=== PATIENT | male | born 1970 | race Caucasian/White ===

== ENCOUNTER 2021-11-30 21:37 | Observation (INO) | payer BC ==
--- OUTSIDE RECORDS SUMMARY | 2021-11-30 21:42 | XMS REPORT | Continuity of Care Document ---
:1970 Author Organization [facility] t Address [address] [place] [address] Care Team Providers Name Role Phone Adelia Fragoso Attending Clinician ADELIA FRAGOSO Attending Clinician Unavailable Isabelle Attending Clinician Unavailable Jaylen Attending Clinician Unavailable El Parsons Admitting Clinician EL PARSONS Admitting Clinician Unavailable Anu_Tho Admitting Clinician Unavailable Jaylen Admitting Clinician Unavailable Payers Payer Name Policy Type Policy Number Effective Date Expiration Date [place] [id number] 2016 00:00:00 Problems Condition Condition Condition Status Onset Resolution Last Treating Co mments Source Name Details Category Date Date Treatment Clinician Date THORACIC, THORACIC, Diagnosis Active 2020-09-24 Memoria LUMBAR LUMBAR 08-09 13:12:00 l COMPRESSIO COMPRESSIO 21:05: Fan blas N N 00 FRACTURES FRACTURES Active 08/09/2020 [facility] Bacterial Bacterial Problem Active 2020-08-12 Memoria pneumonia pneumonia 21:07:01 l (disorder) (disorder) Fan blas Active Problem 08/12/2020 [facility] Diabetes Diabetes Problem Active 2020-08-12 Memoria mellitus mellitus 21:07:01 l (disorder) (disorder) He wan Active Problem 08/12/2020 [facility] History of Past Illness Condition Condition Condition Status Onset Resolution Last Treating Co mments Source Name Details Category Date Date Treatment Clinician Date Contusion Contusion Problem 2020-08-12 2020-08-12 Memoria of lower of lower 08-10 21:07:01 21:07:01 l back and back and 17:00: Ger khanna pelvis, pelvis, 00 initial initial encounter encounter 08/10/2020 [facility] Allergies, Adverse Reactions, Alerts This patient has no known allergies or adverse reactions. Social History Smoking Status Start Date Stop Date Source Former Smoker Kayleigh [facility] Social History [facility] Medications Ordered Filled Start Stop Current Ordering Indication Dosage Frequency Signature Comments Components Source Medication Medication Date Date Medication? Clinician (SIG) Name Name Morphine No 4 mg, Memoria 08-10 Route: l 06:37: IVP, ONCE, Dosing Weight 127, kg, Priority: STAT, Start date: 08/10/20 1:37:00 CDT, Stop date: 08/10/20 1:37:00 CDT Saline No Notes: Memoria Flush 0.9% 08-10 Same as: l 04:00: BD Posiflush Sterile Dilaudid No 1 mg, Memoria 08-10 Route: l 03:59: IVP, ONCE, Dosing Weight 127, kg, Priority: STAT, Start date: 08/09/20 22:59:00 CDT, Stop date: 08/09/20 22:59:00 CDT alprazolam alprazolam No alprazolam [place] 1 mg tablet 1 mg tablet 1 mg d a TAKE 1 TAKE 1 tablet [facility] TABLET BY TABLET BY TAKE 1 al MOUTH THREE MOUTH THREE TABLET BY Health TIMES DAILY TIMES DAILY MOUTH Outreac THREE h TIMES Program DAILY amlodipine amlodipine No amlodipine [place] 10 10 10 da mg-valsarta mg-valsarta mg-valsart [facility] n 160 n 160 an 160 al mg-hydrochl mg-hydrochl mg-hydroch Health orothiazide orothiazide lorothiazi Outreac 25 mg 25 mg de 25 mg h tablet tablet tablet Program Euthyrox 50 Euthyrox 50 No Euthyrox [place] mcg tablet mcg tablet 50 mcg d a tablet [facility] glyburide glyburide No glyburide [place] 2.5 mg 2.5 mg 2.5 mg da tablet tablet tablet [facility] metformin metformin No metformin [place] 500 mg 500 mg 500 mg da tablet TK 1 tablet TK 1 tablet TK [facility] T PO BID T PO BID 1 T PO BID a l UTD UTD [facility] Outreac h Program methyldopa methyldopa No methyldopa [place] 500 mg 500 mg 500 mg da tablet TAKE tablet TAKE tablet [facility] 1 TABLET BY 1 TABLET BY TAKE 1 al MOUTH TWICE MOUTH TWICE TABLET BY Health A DAY A DAY MOUTH Outreac TWICE A h DAY Program rosuvastati rosuvastati No rosuvastat [place] n 10 mg n 10 mg in 10 mg da tablet TK 1 tablet TK 1 tablet TK [facility] T PO HS. T PO HS. 1 T PO HS. a l Health Outreac h Program Immunizations Ordered Immunization Filled Immunization Date Status Commen ts Source Name Name COVID-19, mRNA, COVID-19, mRNA, 2020-07-11 Completed Jomar alen LNP-S, PF, 100 LNP-S, PF, 100 13:00:49 [facility] mcg/0.5 mL dose mcg/0.5 mL dose Outr each Program COVID-19, mRNA, COVID-19, mRNA, 2020-06-13 Completed Hadley alen LNP-S, PF, 100 LNP-S, PF, 100 13:14:20 [facility] mcg/0.5 mL dose mcg/0.5 mL dose Outr each Program influenza virus 2011-12-07 Completed Kayla Marcano vaccine, inactivated 16:35:00 pneumococcal 2011-12-07 Completed [facility] clay 23-valent vaccine 16:33:00 Vital Signs Vital Name Observation Time Observation Value Comments Source Temperature Oral (F) 2020-08-10 10:43:00 98.2 F [facility] Heart Rate 2020-08-10 10:43:00 [facility] Respitory Rate 2020-08-10 10:43:00 Sindy Marcos Systolic (mm Hg) 2020-08-10 10:43:00 Jamin Marcano Diastolic (mm Hg) 2020-08-10 10:43:00 Mem orial [place] Height 2020-08-10 03:13:00 185.42 cm [facility] [place] BMI Calculated 2020-08-10 03:13:00 Sindy canas [place] Weight 2020-08-10 03:13:00 [facility] Systolic (mm Hg) 2020-08-10 03:13:00 Jamin Marcano Diastolic (mm Hg) 2020-08-10 03:13:00 Mem orial [place] Heart Rate 2020-08-10 03:13:00 [facility] Respitory Rate 2020-08-10 03:13:00 Memori al [place] Temperature Oral (F) 2020-08-10 03:13:00 97.2 F [facility] Procedures This patient has no known procedures. Encounters Start End Encounter Admission Attending Care Care Encounter Source Date/Time Date/Time Type Type Clinicians Facility Department ID 2020-08-10 2020-08-10 [facility] [id number] Memoria 03:09:00 10:44:00 r [facility] 53 l [facility] 2020-08-09 2020-08-10 Outpatient Fouzia [facility] [id number] 22:09:00 05:44:00 Adelia [place] 2020-08-09 2020-08-10 Emergency E FOUZIA [facility] [address] [facility] 21:03:00 05:44:00 ADELIA 2020-07-11 2020-07-11 Outpatient Colletteanderson [facility] [address] [place] 01:06:00 01:06:00 [facility] 2020-07-11 2020-07-11 [facility] [place] - [id number] M [place] 00:00:00 00:00:00 Kayleigh Julian MD: [address] [facility] [place], [place] Outre [address] h , Ph. Program 2020-06-13 2020-06-13 [facility] [place] 01:20:00 01:20:00 [facility]406 [facility] 2020-06-13 2020-06-13 [facility] [place] - [id number] [place] 00:00:00 00:00:00 Kayleigh Julian MD: [address] [facility] [place] [place] Outre [address] h , Ph. Program 2020-04-05 2020-04-05 Outpatient Anu_Jasper [facility] [address] [place] 04:46:00 04:46:00 0127 [facility] 2020-01-26 2020-01-26 Outpatient Brown_R [facility] [id number] [place] 02:19:00 02:19:00 [id number] [facility] Results Test Description Test Time Test Comments Results Result Comments Source BLOOD BANK RESULTS 2020-08-10 06:24:00 Test Item Value Reference Range Interpretation Comme nts ABO/Rh (test code = ABO/Rh) O NEG [facility] [employer] BANK [id number] 06:24:00 Test Item Value Reference Range Interpretation Comments Antibody Scrn (test Negative (08/10/20 1:24 code = Antibody Scrn) AM) [facility] [employer] [id number] 05:10:00 Test Item Value Reference Range Interpretation Comments Glucose Lvl (test code = Glucose Lvl) 114 70-99 [facility] [employer] [id number] 05:10:00 Test Item Value Reference Range Interpretation Comments BUN (test code = BUN) 23 7-22 [facility] [employer] [id number] 05:10:00 Test Item Value Reference Range Interpretation Comments Creatinine Lvl (test code = Creatinine 0.86 0.50-1.40 Lvl) [facility] [employer] [id number] 05:10:00 Test Item Value Reference Range Interpretation Comments Sodium Lvl (test code = Sodium Lvl) 141 135-145 [facility] [employer] [id number] 05:10:00 Test Item Value Reference Range Interpretation Comments Potassium Lvl (test code = Potassium 3.7 3.5-5.1 Lvl) [facility] [employer] [id number] 05:10:00 Test Item Value Reference Range Interpretation Comments Chloride Lvl (test code = Chloride Lvl) 108 95-109 [place] [id number] 05:10:00 Test Item Value Reference Range Interpretation Comments CO2 (test code = CO2) 27 24-32 [place] [id number] 05:10:00 Test Item Value Reference Range Interpretation Comments Calcium Lvl (test code = Calcium Lvl) 8.4 8.5-10.5 [place] [id number] 05:10:00 Test Item Value Reference Range Interpretation Comments AGAP (test code = AGAP) 9.7 10.0-20.0 [place] [id number] 05:10:00 Test Item Value Reference Range Interpretation Comments eGFR (test code = eGFR) 100 [place] [id number] 05:10:00 Test Item Value Reference Range Interpretation Comments Segs (test code = Segs) 55.4 45.0-75.0 [place] 332141-06-03 05:10:00 Test Item Value Reference Range Interpretation Comments Lymphocytes (test code = Lymphocytes) 33.9 20.0-40.0 [place] 332141-06-03 05:10:00 Test Item Value Reference Range Interpretation Comments Monocytes (test code = Monocytes) 8.4 2.0-12.0 [place] 332141-06-03 05:10:00 Test Item Value Reference Range Interpretation Comments Eosinophils (test code = 1.7 See_Comment [A utomated message] The Eosinophils) system which ge nerated this result tra nsmitted reference range : <=4.0. The reference r thiago was not used to int erpret this result as normal/abnormal . [place] 332141-06-03 05:10:00 Test Item Value Reference Range Interpretation Comments Basophils (test code = 0.6 See_Comment [Aut omated message] The Basophils) system which ge nerated this result tra nsmitted reference range : <=1.0. The reference r thiago was not used to int erpret this result as normal/abnormal . [place] 332141-06-03 05:10:00 Test Item Value Reference Range Interpretation Comments Neutrophils # (test code = Neutrophils 4.0 1.5-8.1 #) [place] 332141-06-03 05:10:00 Test Item Value Reference Range Interpretation Comments Lymphocytes # (test code = Lymphocytes 2.4 1.0-5.5 #) [id number] 05:10:00 Test Item Value Reference Range Interpretation Comments Monocytes # (test code 0.6 See_Comment [Aut omated message] The = Monocytes #) system which generated this result tra nsmitted reference range : <=0.8. The reference r thiago was not used to int erpret this result as normal/abnormal . [place] 332141-06-03 05:10:00 Test Item Value Reference Range Interpretation Comments Eosinophils # (test code 0.1 See_Comment [A utomated message] The = Eosinophils #) system whic h generated this result tra nsmitted reference range : <=0.5. The reference r thiago was not used to int erpret this result as normal/abnormal . [place] 332141-06-03 05:10:00 Test Item Value Reference Range Interpretation Comments WBC X 10x3 (test code = WBC X 10x3) 7.2 3.7-10.4 [place] 332141-06-03 05:10:00 Test Item Value Reference Range Interpretation Comments RBC X 10x6 (test code = RBC X 10x6) 4.36 4.70-6.10 [place] 332141-06-03 05:10:00 Test Item Value Reference Range Interpretation Comments Hgb (test code = Hgb) 13.1 14.0-18.0 [place] 332141-06-03 05:10:00 Test Item Value Reference Range Interpretation Comments Hct (test code = Hct) 37.7 42.0-54.0 [place] 332141-06-03 05:10:00 Test Item Value Reference Range Interpretation Comments MCV (test code = MCV) 86.5 80.0-94.0 [place] 332141-06-03 05:10:00 Test Item Value Reference Range Interpretation Comments MCH (test code = MCH) 30.1 pg 27.0-31.0 [place] 332141-06-03 05:10:00 Test Item Value Reference Range Interpretation Comments MCHC (test code = MCHC) 34.8 32.0-36.0 [place] 332141-06-03 05:10:00 Test Item Value Reference Range Interpretation Comments RDW (test code = RDW) 14.7 11.5-14.5 [place] 332141-06-03 05:10:00 Test Item Value Reference Range Interpretation Comments Platelet (test code = Platelet) 106 133-450 [place] 332141-06-03 05:10:00 Test Item Value Reference Range Interpretation Comments MPV (test code = MPV) 7.1 7.4-10.4 [place] 332141-06-03 05:10:00 Test Item Value Reference Range Interpretation Comments ACT (TEG) Rapid (test code = ACT (TEG) 121 s 86-118 Rapid) [place] 332141-06-03 05:10:00 Test Item Value Reference Range Interpretation Comments Split Point Rapid (test code = Split 0.7 min Point Rapid) [place] 332141-06-03 05:10:00 Test Item Value Reference Range Interpretation Comments R-time Rapid (test code = R-time 0.8 min 0.4-0.7 Rapid) [place] 332141-06-03 05:10:00 Test Item Value Reference Range Interpretation Comments K-time Rapid (test code = K-time 1.5 min 0.6-2.3 Rapid) [place] 332141-06-03 05:10:00 Test Item Value Reference Range Interpretation Comments Angle Rapid (test code = Angle 74 degrees 64-80 Rapid) [place] 332141-06-03 05:10:00 Test Item Value Reference Range Interpretation Comments Max Amplitude Rapid (test code = Max 63 mm 52-71 Amplitude Rapid) [place] 332141-06-03 05:10:00 Test Item Value Reference Range Interpretation Comments G-value Rapid (test code = G-value 8.5 5.0-11.6 Rapid) [place] 332141-06-03 05:10:00 Test Item Value Reference Range Interpretation Comments Estimated % Lysis Rapid 0.0 See_Comment [Au tomated message] The (test code = Estimated syste m which generated % Lysis Rapid) this result t ransmitted reference range : <=7.5. The reference r thiago was not used to int erpret this result as normal/abnormal . [id number] 05:10:00 Test Item Value Reference Range Interpretation Comments Hep C Ab (test code = Hep C Ab) NON-REACTIVE [facility] [id number] 05:10:00 Test Item Value Reference Range Interpretation Comments Hep Signal to Cut-Off (test code = Hep 0.01 1 Signal to Cut-Off) [facility] [id number] 05:10:00 Test Item Value Reference Range Interpretation Comments [facility] HIV 4th GEN (test Negative *NA*(08/10/20 code = CDC HIV 4th 12:10 AM) GEN) [facility]
--- NOTE | 2021-11-30 22:01 | RAD REPORT ---
EXAM DESCRIPTION: CT - Ct Stroke Brain Wo Cont - 11/30/2021 9:56 pm CLINICAL HISTORY: Neuro deficit, acute, stroke suspected CVA symptomology COMPARISON: Head Brain Wo Cont dated 12/16/2016 TECHNIQUE: All CT scans are performed using dose optimization technique as appropriate and may inclu de automated exposure control or mA/KV adjustment according to patient size. FINDINGS: No intracranial hemorrhage, hydrocephalus or extra-axial fluid collection.No areas of brai n edema or evidence of midline shift. Mild vertebral atherosclerosis. The paranasal sinuses and mastoids are clear. The calvarium is intact. IMPRESSION: No acute intracranial abnormality. If there is continued clinical concern for CVA, MR imaging of the brain would be recommended.
[2021-11-30 22:19] LABS: Absolute Lymphocytes (CBC) 2.2 K/uL (0.7-4.9); Hematocrit 38.2 % (39.6-49.0); Lymphocytes % 31.6 % (15.3-44.8); RBC Red Blood Cell Count 4.56 M/uL (4.33-5.43)
[2021-11-30 22:28] LABS: Protime INR 1.02
[2021-11-30 22:31] LABS: Potassium 3.5 mmol/L (3.5-5.1)
--- NOTE | 2021-11-30 23:15 | RAD REPORT ---
EXAM DESCRIPTION: RAD - Chest Single View - 11/30/2021 11:05 pm CLINICAL HISTORY: CVA Chest pain. COMPARISON: Chest Single View dated 12/16/2016; CHEST PA AND LAT 2 VIEW dated 07/15/2011; CHEST SINGLE VIEW dated 07/14/2011; CHEST SINGLE VIEW dated 07/30/2008 FINDINGS: Portable technique limits examination quality. The lungs are grossly clear. The heart is normal in size. No displaced fractures. IMPRESSION: No acute intrathoracic process suspected.
--- NOTE | 2021-11-30 23:38 | ER ---
Nurse's Notes [facility] Name: Jitendra Holliday Age: 51 yrs Sex: Male : 1970 Arrival Date: 11/30/2021 Time: 21:44 Bed 25 Private MD: Diagnosis: Transient cerebral ischemic attack, unspecified;Left Arm Paresthesias;Essential (primary) hypertension Presentation: 11/30 21:45 Chief complaint: Patient states: Unable to "get out what I want to say", dizzy, "in a ld1 fog", left arm tingling on and off/numb. "on and off for 2 weeks.". Coronavirus screen: At this time, the client does not indicate any symptoms associated with coronavirus-19. Ebola Screen: No symptoms or risks identified at this time. Initial Sepsis Screen: Does the patient meet any 2 criteria? No. Patient's initial sepsis screen is negative. Does the patient have a suspected source of infection? No. Patient's initial sepsis screen is negative. Risk Assessment: Do you want to hurt yourself or someone else? Patient reports no desire to harm self or others. Onset of symptoms was November 30, 2021 at 21:47. 21:45 Method Of Arrival: Wheelchair ld1 21:45 Acuity: JOHANNA 3 ld1 Triage Assessment: 21:47 General: Appears in no apparent distress. comfortable, Behavior is calm, cooperative, ld1 appropriate for age. Pain: Denies pain. EENT: No signs and/or symptoms were reported regarding the EENT system. Neuro: Myles Agitation-Sedation Scale (RASS):. Neuro: Level of Consciousness is awake, alert, obeys commands, Oriented to person, place, time, situation, Associate Veterinarian are equal bilaterally Gait is unsteady. Cardiovascular: Capillary refill < 3 seconds Patient's skin is warm and dry. Respiratory: Airway is patent Respiratory effort is even, unlabored. GI: Abdomen is round non-distended. : No signs and/or symptoms were reported regarding the genitourinary system. Derm: No signs and/or symptoms reported regarding the dermatologic system. Musculoskeletal: No signs and/or symptoms reported regarding the musculoskeletal system. Historical: - Allergies: 21:47 No Known Allergies; ld1 - PMHx: 21:47 Diabetes - NIDDM; Hypertension; Hypothyroidism; insomnia; microalbuminuria; TIA; ld1 - PSHx: 21:47 None; ld1 - Immunization history:: Adult Immunizations up to date, Client reports receiving the 2nd dose of the Covid vaccine. - Social history:: Smoking status: Patient denies any tobacco usage or history of. Patient/guardian denies using alcohol. Screenin:33 Abuse screen: Denies threats or abuse. Denies injuries from another. Nutritional ll3 screening: No deficits noted. Tuberculosis screening: No symptoms or risk factors identified. VAN Screening: Arm Drift: Patient shows no arm weakness. Visual Disturbance: No visual disturbance noted. Aphasia: No aphasia noted. Neglect: No neglect noted. Patient has been NPO before screening. The patient is alert, able to follow commands. The patient does not exhibit slurred or garbled speech The patient is not exhibiting difficulty speaking. The patient does not exhibit difficulty understanding words. The patient is able to swallow own secretions with no drooling or need for suction. Patient tolerated one teaspoon of water. No drooling, immediate coughing, gurgling, or clearing of the throat was noted. The patient tolerated 90mL of water. No drooling, immediate coughing, gurgling, or clearing of the throat was noted. The patient passed the bedside swallow screening. Oral medications may be given as ordered. Contact Physician for further diet orders. Provider notified of bedside swallow screening results: Sander Arciniega DO. Fall Risk No fall in past 12 months (0 pts). No secondary diagnosis (0 pts). IV access (20 points). Ambulatory Aid- None/Bed Rest/Nurse Assist (0 pts). Gait- Normal/Bed Rest/Wheelchair (0 pts) Mental Status- Oriented to own ability (0 pts). Total Jim Fall Scale indicates No Risk (0-24 pts). Assessment: 22:31 General: Appears uncomfortable, Behavior is calm, cooperative, anxious. Pain: Denies ll3 pain. Neuro: Level of Consciousness is awake, alert, obeys commands, Oriented to person, place, time, situation, Reports dizziness, since Noon yesterday Numbness to left arm, states symptoms have been off and on for the last two weeks, states the s/s came back at noon yesterday. Respiratory: Respiratory effort is even, unlabored, Respiratory pattern is regular, symmetrical. Derm: Skin is pink, warm \\T\\ dry. Musculoskeletal: Circulation, motion, and sensation intact. 23:10 Reassessment: Patient appears in no apparent distress at this time. No changes from kl previously documented assessment. Patient and/or family updated on plan of care and expected duration. Pain level reassessed. Patient is alert, oriented x 3, equal unlabored respirations, skin warm/dry/pink. 12/01 00:05 Reassessment: Patient appears in no apparent distress at this time. No changes from ll3 previously documented assessment. Patient and/or family updated on plan of care and expected duration. Pain level reassessed. Patient is alert, oriented x 3, equal unlabored respirations, skin warm/dry/pink. Vital Signs: 11/30 21:45 BP 203 / 89; Pulse 73; Resp 18; Temp 97.3(TE); Pulse Ox 98% on R/A; Weight 109.32 kg; ld1 Height 6 ft. 1 in. (185.42 cm); Pain 0/10; 22:36 BP 169 / 78; Pulse 64; Resp 21; Pulse Ox 98% on R/A; ll3 23:14 BP 173 / 81; Pulse 63; Resp 18; Pulse Ox 99% on R/A; kl 12/01 00:05 BP 170 / 78; Pulse 59; Resp 20; Pulse Ox 98% on R/A; ll3 11/30 21:45 Body Mass Index 31.80 (109.32 kg, 185.42 cm) ld1 NIH Stroke Scale Scores: 11/30 22:33 NIHSS Score: 0 ll3 22:50 NIHSS Score: 0 ms3 ED Course: 21:44 Patient arrived in ED. ja2 21:47 Sander Arciniega DO is Attending Physician. ms3 21:47 Triage completed. ld1 21:47 Arm band placed on right wrist. ld1 21:57 CT Stroke Brain w/o Contrast In Process Unspecified. EDMS 22:05 Initial lab(s) drawn, by me, sent to lab. Inserted saline lock: 22 gauge in left ll3 antecubital area, using aseptic technique. Blood collected. 22:33 Patient has correct armband on for positive identification. Bed in low position. Call 3 light in reach. Side rails up X 1. Client placed on continuous cardiac and pulse oximetry monitoring. NIBP monitoring applied. 23:07 Stroke CXR 1 View In Process Unspecified. EDMS 23:36 Bambi Yoon MD is Hospitalizing Provider. ms3 12/01 00:59 No provider procedures requiring assistance completed. Patient admitted, IV remains in kl place. Administered Medications: No medications were administered Outcome: 11/30 23:38 Decision to Hospitalize by Provider. ms3 12/01 00:59 Admitted to ER Hold. Please see [facility] for further documentation. kl 18:49 Patient left the ED. aa5 NIH Stroke Scale - NIH Stroke Score Date: 11/30/2021 Time: 22:33 Total Score = 0 1a. Level of Consciousness (LOC) - 0(Alert) 1b. Level of Consciousness (LOC) (Month \\T\\ Age) - 0(Both) 1c. LOC Commands (Open \\T\\ Closes Eyes/Summer School Coordinator) - 0(Both) 2. Best Gaze (Lateral Gaze Paresis) - 0(Normal) 3. Visual Field Loss - 0(No visual loss) 4. Facial Palsy - 0(Normal) 5a. Left Arm: Motor (10-second hold) - 0(No drift) 5b. Right Arm: Motor (10-second hold) - 0(No drift) 6a. Left Leg: Motor (5-second hold - always test supine) - 0(No drift) 6b. Right Leg: Motor (5-second hold - always test supine) - 0(No drift) 7. Limb Ataxia (finger/nose \\T\\ heel/strong - test with eyes open) - 0(Absent) 8. Sensory Loss (pinprick arms/legs/face) - 0(Normal) 9. Best Language: Aphasia (description/naming/reading) - 0(No aphasia) 10. Dysarthria (speech clarity - read or repeat words) - 0(Normal) 11. Extinction and Inattention (visual/tactile/auditory/spatial/personal) - 0(No abnormality) Initials: ll3 NIH Stroke Scale - NIH Stroke Score Date: 11/30/2021 Time: 22:50 Total Score = 0 1a. Level of Consciousness (LOC) - 0(Alert) 1b. Level of Consciousness (LOC) (Month \\T\\ Age) - 0(Both) 1c. LOC Commands (Open \\T\\ Closes Eyes/Summer School Coordinator) - 0(Both) 2. Best Gaze (Lateral Gaze Paresis) - 0(Normal) 3. Visual Field Loss - 0(No visual loss) 4. Facial Palsy - 0(Normal) 5a. Left Arm: Motor (10-second hold) - 0(No drift) 5b. Right Arm: Motor (10-second hold) - 0(No drift) 6a. Left Leg: Motor (5-second hold - always test supine) - 0(No drift) 6b. Right Leg: Motor (5-second hold - always test supine) - 0(No drift) 7. Limb Ataxia (finger/nose \\T\\ heel/strong - test with eyes open) - 0(Absent) 8. Sensory Loss (pinprick arms/legs/face) - 0(Normal) 9. Best Language: Aphasia (description/naming/reading) - 0(No aphasia) 10. Dysarthria (speech clarity - read or repeat words) - 0(Normal) 11. Extinction and Inattention (visual/tactile/auditory/spatial/personal) - 0(No abnormality) Initials: ms3 Signatures: Dispatcher [employer] EDMS Kelsie Goddard, RN RN kl Germaine Linda RN RN aa5 Sander Arciniega, DO ms3 Tamra Clark, RN RN Ebonie Knight Lynsea, RN RN ll3 Corrections: (The following items were deleted from the chart) 11/30 22:34 22:31 Neuro: Level of Consciousness is awake, alert, obeys commands, Oriented ll3 to person, place, time, situation, Reports Numbness to left arm. ll3
--- NOTE | 2021-11-30 23:38 | EDPHYS ---
Physician Documentation [facility] Name: Jitendra Holliday Age: 51 yrs Sex: Male : 1970 Arrival Date: 11/30/2021 Time: 21:44 Bed 25 Private MD: ED Physician Sander Arciniega HPI: 11/30 22:50 This 51 yrs old Male presents to ER via Wheelchair with complaints of difficulty ms3 thinking and talking. 22:50 51-year-old male with past medical history of diabetes, hypertension, hypothyroidism ms3 presents for 2 to 3 weeks of difficulty thinking and speaking. Patient notes he is also had some left arm tingling and numbness. Patient denies pain at this time. Patient denies alleviating or inciting factors. Patient states he has had 2 TIAs in the past. Patient denies abdominal pain, chest pain, shortness of breath, nausea, vomiting, fevers, chills. Historical: - Allergies: 21:47 No Known Allergies; ld1 - PMHx: 21:47 Diabetes - NIDDM; Hypertension; Hypothyroidism; insomnia; microalbuminuria; TIA; ld1 - PSHx: 21:47 None; ld1 - Immunization history:: Adult Immunizations up to date, Client reports receiving the 2nd dose of the Covid vaccine. - Social history:: Smoking status: Patient denies any tobacco usage or history of. Patient/guardian denies using alcohol. ROS: 22:50 Constitutional: Negative for fever, and chills. ENT: Negative for injury, pain, and ms3 discharge, Neck: Negative for injury, pain, and swelling, Cardiovascular: Negative for chest pain, and palpitations. Respiratory: Negative for shortness of breath, cough, wheezing, and pleuritic chest pain, Abdomen/GI: Negative for abdominal pain, nausea, vomiting, diarrhea, and constipation, MS/Extremity: Negative for injury and deformity, Skin: Negative for injury, rash, and discoloration. 22:50 Neuro: Positive for Difficulty speaking. 22:50 All other systems are negative. Exam: 22:04 ECG was reviewed by the Attending Physician. ms3 22:50 Constitutional: This is a well developed, well nourished patient who is awake, alert, ms3 and in no acute distress. Head/Face: Normocephalic, atraumatic. Eyes: Pupils equal round and reactive to light, extra-ocular motions intact. Lids and lashes normal. Conjunctiva and sclera are non-icteric and not injected. Periorbital areas with no swelling, redness, or edema. Neck: Trachea midline, no cervical lymphadenopathy. Supple, full range of motion without nuchal rigidity, or vertebral point tenderness. No Meningismus. Chest/axilla: Normal chest wall appearance and motion. Nontender with no deformity. Cardiovascular: Regular rate and rhythm with a normal S1 and S2. No gallops, murmurs, or rubs. Normal PMI, no JVD. No pulse deficits. Respiratory: Lungs have equal breath sounds bilaterally, clear to auscultation and percussion. No rales, rhonchi or wheezes noted. No increased work of breathing, no retractions or nasal flaring. Abdomen/GI: Soft, non-tender, with normal bowel sounds. No distension or tympany. No guarding or rebound. No evidence of tenderness throughout. Back: No spinal tenderness. No costovertebral tenderness. Full range of motion. Skin: Warm, dry with normal turgor. Normal color with no rashes, no lesions, and no evidence of cellulitis. MS/ Extremity: Pulses equal, no cyanosis. Neurovascular intact. Full, normal range of motion. Psych: Awake, alert, with orientation to person, place and time. Behavior, mood, and affect are within normal limits. 23:41 Radiologist reports: Negative acute ms3 Vital Signs: 21:45 BP 203 / 89; Pulse 73; Resp 18; Temp 97.3(TE); Pulse Ox 98% on R/A; Weight 109.32 kg; ld1 Height 6 ft. 1 in. (185.42 cm); Pain 0/10; 22:36 BP 169 / 78; Pulse 64; Resp 21; Pulse Ox 98% on R/A; ll3 23:14 BP 173 / 81; Pulse 63; Resp 18; Pulse Ox 99% on R/A; kl 12/01 00:05 BP 170 / 78; Pulse 59; Resp 20; Pulse Ox 98% on R/A; ll3 11/30 21:45 Body Mass Index 31.80 (109.32 kg, 185.42 cm) ld1 NIH Stroke Scale Scores: 11/30 22:33 NIHSS Score: 0 ll3 22:50 NIHSS Score: 0 ms3 MDM: 22:15 Patient medically screened. ms3 23:38 Data reviewed: vital signs, nurses notes, lab test result(s), EKG, radiologic studies, ms3 and as a result, I will admit patient. Data interpreted:. Counseling: I had a detailed discussion with the patient and/or guardian regarding: the historical points, exam findings, and any diagnostic results supporting the discharge/admit diagnosis, lab results, radiology results, the need for further work-up and treatment in the hospital. ED course: Discussed case with ZOHRA Blood and accepts patient on behalf of Dr. Yoon. All questions were answered. Patient understands and agrees with plan of observation. Patient remains in stable condition with a NIH of 0 at this time.. 11/30 21:52 Order name: Basic Metabolic Panel; Complete Time: 22:42 ms3 11/30 21:52 Order name: CBC with Diff; Complete Time: 22:42 ms3 11/30 21:52 Order name: Protime (+inr); Complete Time: 22:42 ms3 11/30 21:52 Order name: Ptt, Activated; Complete Time: 22:42 ms3 11/30 22:16 Order name: Glucose, Ancillary Testing; Complete Time: 22:42 EDMS 11/30 23:38 Order name: SARS-COV-2 Antigen Rapid; Complete Time: 00:28 3 11/30 21:52 Order name: CT Stroke Brain w/o Contrast ms3 11/30 21:52 Order name: Stroke CXR 1 View; Complete Time: 23:27 ms3 12/01 04:43 Order name: Lipid Profile; Complete Time: 04:47 EDMS 12/01 04:43 Order name: Thyroid Stimulating Hormone; Complete Time: 04:47 EDMS 12/01 04:55 Order name: Hemoglobin A1c; Complete Time: 04:57 EDMS 12/01 07:58 Order name: Glucose, Ancillary Testing EDMS 12/01 11:24 Order name: Glucose, Ancillary Testing EDMS 12/01 16:39 Order name: Glucose, Ancillary Testing EDMS 11/30 21:52 Order name: EKG; Complete Time: 21:52 ms3 11/30 21:52 Order name: Accucheck; Complete Time: 22:05 ms3 11/30 21:52 Order name: Cardiac monitoring; Complete Time: 22:05 ms3 11/30 21:52 Order name: EKG - Nurse/Tech; Complete Time: 22:05 ms3 11/30 21:52 Order name: IV Saline Lock; Complete Time: 22:05 ms3 11/30 21:52 Order name: Labs collected and sent; Complete Time: 22:05 ms3 11/30 21:52 Order name: NPO; Complete Time: 22:27 ms3 11/30 21:52 Order name: O2 Per Protocol; Complete Time: 22:05 ms3 11/30 21:52 Order name: O2 Sat Monitoring; Complete Time: 22:05 ms3 11/30 21:52 Order name: Stroke Swallow Screen; Complete Time: 22:27 ms3 12/01 07:43 Order name: US EDMS 12/01 15:30 Order name: CT EDMS 12/01 15:36 Order name: CT EDMS EC:04 Rate is 69 beats/min. Rhythm is regular. QRS [place] is Normal. PA interval is prolonged ms3 at 212 msec. QRS interval is normal. Clinical impression: 1st degree heart block. Interpreted by me. Reviewed by me. Administered Medications: No medications were administered Disposition Summary: 11/30/21 23:38 Hospitalization Ordered Hospitalization Status: Observation ms3 Provider: Bambi Yoon ms3 Condition: Stable ms3 Problem: new ms3 Symptoms: are unchanged ms3 Bed/Room Type: Standard ms3 Location: Telemetry/MedSurg (Inpatient)(12/01/21 18:18) aa5 Room Assignment: [facility](12/01/21 18:18) aa5 Diagnosis - Transient cerebral ischemic attack, unspecified ms3 - Left Arm Paresthesias ms3 - Essential (primary) hypertension ms3 Forms: - Medication Reconciliation Form ms3 - SBAR form ms3 NIH Stroke Scale - NIH Stroke Score Date: 11/30/2021 Time: 22:33 Total Score = 0 1a. Level of Consciousness (LOC) - 0(Alert) 1b. Level of Consciousness (LOC) (Month \T\ Age) - 0(Both) 1c. LOC Commands (Open \T\ Closes Eyes/Developmental Education Instructor) - 0(Both) 2. Best Gaze (Lateral Gaze Paresis) - 0(Normal) 3. Visual Field Loss - 0(No visual loss) 4. Facial Palsy - 0(Normal) 5a. Left Arm: Motor (10-second hold) - 0(No drift) 5b. Right Arm: Motor (10-second hold) - 0(No drift) 6a. Left Leg: Motor (5-second hold - always test supine) - 0(No drift) 6b. Right Leg: Motor (5-second hold - always test supine) - 0(No drift) 7. Limb Ataxia (finger/nose \T\ heel/storng - test with eyes open) - 0(Absent) 8. Sensory Loss (pinprick arms/legs/face) - 0(Normal) 9. Best Language: Aphasia (description/naming/reading) - 0(No aphasia) 10. Dysarthria (speech clarity - read or repeat words) - 0(Normal) 11. Extinction and Inattention (visual/tactile/auditory/spatial/personal) - 0(No abnormality) Initials: ll3 NIH Stroke Scale - NIH Stroke Score Date: 11/30/2021 Time: 22:50 Total Score = 0 1a. Level of Consciousness (LOC) - 0(Alert) 1b. Level of Consciousness (LOC) (Month \T\ Age) - 0(Both) 1c. LOC Commands (Open \T\ Closes Eyes/Developmental Education Instructor) - 0(Both) 2. Best Gaze (Lateral Gaze Paresis) - 0(Normal) 3. Visual Field Loss - 0(No visual loss) 4. Facial Palsy - 0(Normal) 5a. Left Arm: Motor (10-second hold) - 0(No drift) 5b. Right Arm: Motor (10-second hold) - 0(No drift) 6a. Left Leg: Motor (5-second hold - always test supine) - 0(No drift) 6b. Right Leg: Motor (5-second hold - always test supine) - 0(No drift) 7. Limb Ataxia (finger/nose \T\ heel/strong - test with eyes open) - 0(Absent) 8. Sensory Loss (pinprick arms/legs/face) - 0(Normal) 9. Best Language: Aphasia (description/naming/reading) - 0(No aphasia) 10. Dysarthria (speech clarity - read or repeat words) - 0(Normal) 11. Extinction and Inattention (visual/tactile/auditory/spatial/personal) - 0(No abnormality) Initials: ms3 Signatures: Dispatcher [employer] EDShahla Padilla RN RN mw Germaine Linda RN RN aa5 Sander Arciniega DO DO ms3 Tamra Clark RN RN ld1 Veronica Russell, PABilly PABilly sb4 Corrections: (The following items were deleted from the chart) 12/01 00:11/30 23:38 Telemetry/MedSurg (observation) mo3 12/01 00:11/30 23:38 mo3 12/01 18:18 00:51 [facility] ER HOLD mw aa5 18:18 00:51 ERHOLD- mw aa5
[2021-12-01 00:18] LABS: SARS-CoV-2 Antigen Rapid Res Negative (Negative)
--- NOTE | 2021-12-01 00:42 | P.HP ---
Certification for Inpatient Patient admitted to: Observation With expected LOS: <2 Midnights Patient will require the following post-hospital care: None Practitioner: I am a practitioner with admitting privileges, knowledge of patient current condition, hospital course, and medical plan of care. Services: Services provided to patient in accordance with Admission requirements found in Title 42 Section 412.3 of the Code of Federal Regulations Patient History Date of Service: 12/01/21 Reason for admission: TIA History of Present Illness: Patient is a 51 year old male with history of TIAs, hypertension, non insulin dependent type 2 diabetes, and hypothyroidism who presented to the ED with complaints of 2 weeks of dizzy spells, left arm tingling, and expressive aphasia. BP 203/89 upon arrival to ED. Code stroke called. Patient passed bedside swallow. NIH score 0. His head CT is negative. His labs are unremarkable. Patient reports that he has had TIAs in the past and takes 324 mg aspirin and statins daily. He reports "blockage" of unknown degree in his right carotid artery. His BP has improved without medication. His speech is slightly slurred during my assessment and he is exhibiting some expressive aphasia but neurologic exam is otherwise unremarkable. ED provider wishes to admit patient for observation. Allergies No Known Allergies Allergy (Verified 12/16/16 23:37) Home medications list reviewed: Yes Home Medications: Amlodipine Besylate 10 mg PO DAILY 07/14/11 Metformin HCl 1,000 mg PO BIDWM 07/14/11 Levothyroxine Sodium [Levothroid] 50 mcg PO DAILY #30 tablet 07/17/11 Alprazolam 2 mg PO BEDTIME 12/17/16 Methyldopa 1 tab PO BID 12/17/16 Pioglitazone [Actos*] 30 mg PO DAILY 12/17/16 Rosuvastatin [Crestor*] 1 tab PO BEDTIME 12/17/16 Sertraline [Zoloft*] 25 mg PO BEDTIME 12/17/16 carvediloL [Carvedilol] 0.5 tab PO BID 12/17/16 hydroCHLOROthiazide [Hydrochlorothiazide] 1 tab PO DAILY 12/17/16 lisinopriL [Prinivil*] 20 mg PO DAILY 12/17/16 - Past Medical/Surgical History Diabetic: Yes -: htn -: TIA -: Hypothroidism -: diabetes- NIDDM -: insomnia -: microalbuminuria -: Tonsillectomy Psychosocial/ Personal History: Patient is . - Family History Father -: Hypertension - Social History Smoking Status: Never smoker Alcohol use: No CD- Drugs: No Caffeine use: Yes Place of Residence: Home Review of Systems General: Weakness Neurological: Numbness, Change in Speech Physical Examination - Physical Exam General: Alert, In no apparent distress HEENT: Atraumatic, PERRLA, EOMI, Sclerae nonicteric Neck: Supple, 2+ carotid pulse no bruit, No LAD, Without JVD or thyroid abnormality Respiratory: Clear to auscultation bilaterally, Normal air movement Cardiovascular: Regular rate/rhythm, Normal S1 S2 Gastrointestinal: Normal bowel sounds, No tenderness Musculoskeletal: No tenderness Integumentary: No rashes Neurological: Normal gait, Normal speech, Normal strength at 5/5 x4 extr, Normal tone, Normal affect - Studies Laboratory Data (last 24 hrs) 11/30/21 22:03: PT 11.2, INR 1.02, APTT 33.2 11/30/21 22:03: WBC 7.00, Hgb 13.6, Hct 38.2 L, Plt Count 111 L 11/30/21 22:03: Sodium 141, Potassium 3.5, BUN 30 H, Creatinine 1.03, Glucose 107 H Assessment and Plan - Problems (Diagnosis) (1) TIA (transient ischemic attack) Current Visit: Yes Status: Acute (2) Hypertension Current Visit: Yes Status: Chronic Qualifiers: Hypertension type: primary hypertension Qualified Code(s): I10 - Essential (primary) hypertension (3) Type 2 diabetes mellitus Current Visit: Yes Status: Chronic Qualifiers: Diabetes mellitus snf insulin use: without snf use Diabetes mellitus complication status: without complication Qualified Code(s): E11.9 - Type 2 diabetes mellitus without complications (4) Hypothyroidism Current Visit: Yes Status: Acute Qualifiers: Hypothyroidism type: unspecified Qualified Code(s): E03.9 - Hypothyroidism, unspecified - Plan -MRI not available on weekend -Neurology consult -Echo and carotid US in morning -ACHS accu checks with mild sliding scale insulin and diabetic diet. A1C ordered -BP control with home meds and hydralazine PRN -Lipid panel and TSH ordered -Monitor and replete electrolytes per protocol -Reconcile and continue home medications -Lovenox for VTE ppx -Full code Discharge Plan: Home Plan to discharge in: 24 Hours - Advance Directives Does patient have a Living Will: No Does patient have a Durable POA for Healthcare: No - Code Status/Comfort Care Code Status Assessed: Yes (Full) Critical Care: No Time Spent Managing Pts Care (In Minutes): 50
[2021-12-01] MEDS ORDERED: ONDANSETRON 4 MG/2 ML VIAL IV PRN (02:40)
[2021-12-01] MEDS ORDERED: HYDRALAZINE HCL 20 MG/ML VIAL IV PRN (02:40)
[2021-12-01 04:42] LABS: Thyroid Stimulating Hormone 1.51 uIU/mL (0.360-3.740)
[2021-12-01] MEDS: INSULIN -REGULAR HUMAN 50 UNIT/0.5 ML ML SQ SCH ×4 (07:30→21:00)
--- NOTE | 2021-12-01 07:42 | RAD REPORT ---
EXAM DESCRIPTION: - CP - 12/01/2021 6:42 am CLINICAL HISTORY: TIA Headache, drowsiness, CVA symptomology COMPARISON: No comparisons TECHNIQUE: Real-time sonographic evaluation of both carotid systems was performed. Doppler interroga tion was performed with waveform tracing bilaterally. FINDINGS: Normal high resistance waveforms are noted in both external carotid arteries. The common c arotid arteries and internal carotid arteries show normal low resistance waveforms. Moderate hard plaque is seen proximal right internal carotid artery. This results in a stenosis of 80 % based on NASCET criteria. Peak systolic and end diastolic velocity values and the ICA/CCA ratios ar e in the non-hemodynamically significant range. Antegrade flow seen in both vertebral arteries. IMPRESSION: Moderate hard plaque is present proximal right internal carotid artery. This results in 80% of stenosis visually based on NASCET criteria. CTA or MRA of the neck vessels to be obtained for further evaluation.
[2021-12-01] MEDS ORDERED: ASPIRIN EC 81 MG TAB PO ONE (08:25)
[2021-12-01] MEDS ORDERED: ASPIRIN 81 MG CHEWABLE TABLET ONE (08:25)
[2021-12-01] MEDS ORDERED: ENOXAPARIN 40 MG/0.4 ML SQ ONE (08:25)
[2021-12-01] MEDS: ASPIRIN EC 81 MG TAB PO SCH (09:00)
[2021-12-01] MEDS: ENOXAPARIN 40 MG/0.4 ML SQ SCH (09:00)
[2021-12-01] MEDS: ACETAMINOPHEN 500 MG TAB PO PRN (13:51)
[2021-12-01] MEDS ORDERED: ACETAMINOPHEN 500 MG TAB ONE (14:00)
[2021-12-01] MEDS: NA CHLORIDE 0.9% 1,000 ML IV SCH (15:00)
[2021-12-01] MEDS ORDERED: NA CHLORIDE 0.9% 1,000 ML ONE (15:18)
--- NOTE | 2021-12-01 15:30 | RAD REPORT ---
EXAM DESCRIPTION: CT - Head angio - 12/01/2021 3:21 pm CLINICAL HISTORY: STENOSIS Headache, drowsiness, CVA symptomology COMPARISON: Ct Stroke Brain Wo Cont dated 11/30/2021; Head Brain Wo Cont dated 12/16/2016; Carotid Art demar Bilateral dated 12/01/2021 TECHNIQUE: CT angiography of the head was performed with MIPs. All CT scans are performed using dose optimization technique as appropriate and may include automated exposure control or mA/KV adjustment according to patient size. FINDINGS: No evidence of aneurysm is detected. No flow-limiting stenosis or vascular malformation id entified. Antegrade flow is seen in the vertebral arteries. The vertebral arteries are codominant. The visualized dural venous sinuses are patent. IMPRESSION: No significant flow abnormality is detected.
--- NOTE | 2021-12-01 15:35 | RAD REPORT ---
EXAM DESCRIPTION: CT - Neck Angio - 12/01/2021 3:21 pm CLINICAL HISTORY: carotid artery stenosis Headache, neck pain, drowsiness COMPARISON: Carotid Artery Bilateral dated 12/01/2021 TECHNIQUE: CT angiography of the neck vessels was performed with MIPs. All CT scans are performed using dose optimization technique as appropriate and may include automated exposure control or mA/KV adjustment according to patient size. FINDINGS: A left aortic arch is identified with normal three vessel configuration of the great vesse ls. Focal soft plaque is present involving the distal left common carotid artery resulting in 50% stenosi s based on NASCET criteria. Moderate mixed plaque is present involving the left carotid bulb resultin g in 50-70% stenosis based on NASCET criteria. Moderate hard plaque is present right carotid bulb/proximal right ICA resulting 80% stenosis based on NASCET criteria. No dissection seen. Normal flow is seen within both vertebral arteries. IMPRESSION: Carotid stenosis is bilaterally identified, greater on the right as detailed.
[2021-12-01] MEDS ORDERED: ATORVASTATIN 40 MG TAB PO SCH (21:00)
[2021-12-01] MEDS ORDERED: HYDRALAZINE HCL 25 MG TABLET PO SCH (21:00)
[2021-12-01] MEDS ORDERED: ROSUVASTATIN 10 MG TAB PO SCH (21:00)
[2021-12-01] MEDS ORDERED: carvediloL 25 MG TAB ONE (21:36)
[2021-12-01] MEDS: carvediloL 25 MG TAB PO SCH (21:39)
[2021-12-02] MEDS: ACETAMINOPHEN 500 MG TAB PO PRN (03:57)
[2021-12-02] MEDS: NA CHLORIDE 0.9% 1,000 ML IV SCH (03:57)
[2021-12-02 05:07] VITALS: BMI 31.8
[2021-12-02 06:04] LABS: Absolute Lymphocytes (CBC) 2.3 K/uL (0.7-4.9); Hematocrit 38.2 % (39.6-49.0); Lymphocytes % 38.2 % (15.3-44.8); MCV 84.3 fL (80-100); RBC Red Blood Cell Count 4.52 M/uL (4.33-5.43)
[2021-12-02 06:14] LABS: Potassium 3.3 mmol/L (3.5-5.1)
[2021-12-02] MEDS: INSULIN -REGULAR HUMAN 50 UNIT/0.5 ML ML SQ SCH (07:30)
[2021-12-02] MEDS ORDERED: hydroCHLOROthiazide 12.5 MG CAP PO SCH (09:00)
[2021-12-02] MEDS ORDERED: AMLODIPINE 10 MG TAB PO SCH (09:00)
[2021-12-02] MEDS ORDERED: LEVOTHYROXINE SOD 0.05 MG TABLET PO SCH (09:00)
[2021-12-02] MEDS ORDERED: glyBURIDE 2.5 MG TAB PO SCH (09:00)
[2021-12-02] MEDS: ASPIRIN EC 81 MG TAB PO SCH (09:25)
[2021-12-02] MEDS: carvediloL 25 MG TAB PO SCH (09:25)
[2021-12-02] MEDS: ENOXAPARIN 40 MG/0.4 ML SQ SCH (09:25)
[2021-12-03 05:12] VITALS: TEMP 97.7; O2SAT 100
[2021-12-03 05:14] VITALS: BP 128/98
--- NOTE | 2021-12-03 14:12 | EKG ---
Test Date: 2021-11-30 Test Time: 22:04:05 Publications Sales Representative: AMANDA MEASUREMENT RESULTS: Intervals: Rate: 69 ID: [id number] QRSD: 104 QT: 398 QTc: 426 B[place]: P: 31 ID: [id number] QRS: 47 T: 6 INTERPRETIVE STATEMENTS: Sinus rhythm with 1st degree AV block Otherwise normal ECG Compared to ECG 12/16/2016 15:14:20 No significant changes Electronically Signed On 12-03-21 14:09:42 CDT by Alen Joseph
== END 2021-12-02 10:28 | disposition home or self-care (01) ==
LOC: ER 21:37 → ERHOLD 12-01 00:33 → 4TH 12-01 18:25
PROVIDERS: ADMIT Hospitalist; ATTEND Hospitalist
DX: G45.9 Transient cerebral ischemic attack, unspecified (principal); I10 Essential (primary) hypertension; E11.9 Type 2 diabetes mellitus without complications; E03.9 Hypothyroidism, unspecified; R29.700 NIHSS score 0; Z82.49 Family history of ischemic heart disease and other diseases of the circulatory system
CPT/HCPCS: 93005; 85025 ×2; 80048 ×2; 36415 ×2; 85610; 80061 ×2; 82947 ×6; 85730; 84443; 83036; 70496; 70498; 70450; 71045; 93880; 97161; 97530; 99285; 87811; Q9967; J1650 ×2; J7030 ×2; G0378 ×3

== ENCOUNTER 2022-04-17 08:32 | Emergency (ER) | payer OTHER, SELFPAY ==
--- OUTSIDE RECORDS SUMMARY | 2022-04-17 08:44 | XMS REPORT | Continuity of Care Document ---
:1970 Author Organization [facility] t Address [address] [place] [address] Care Team Providers Name Role Phone Adelia Fragoso Attending Clinician ADELIA FRAGOSO Attending Clinician Unavailable Isabelle Attending Clinician Unavailable Jaylen Attending Clinician Unavailable El Parsons Admitting Clinician EL PARSONS Admitting Clinician Unavailable Isabelle Admitting Clinician Unavailable Jaylen Admitting Clinician Unavailable Payers Payer Name Policy Type Policy Number Effective Date Expiration Date S se[place] [id number] 2016 00:00:00 Problems Condition Condition Condition Status Onset Resolution Last Treating Co mments Source Name Details Category Date Date Treatment Clinician Date THORACIC, Diagnosis Active 2020-09-24 Memoria LUMBAR THORACIC, 08-09 13:12:00 l COMPRESSIO LUMBAR 21:05: Ger n N COMPRESSIO 00 FRACTURES N FRACTURES Active 08/09/2020 [facility] Bacterial Bacterial Problem Active 2020-08-12 Memoria pneumonia pneumonia 21:07:01 l (disorder) (disorder) He rmann Active Problem 08/12/2020 [facility] Diabetes Diabetes Problem Active 2020-08-12 Memoria mellitus mellitus 21:07:01 l (disorder) (disorder) He rmann Active Problem 08/12/2020 [facility] History of Past Illness Condition Condition Condition Status Onset Resolution Last Treating Co mments Source Name Details Category Date Date Treatment Clinician Date Contusion Contusion Problem 2020-08-12 2020-08-12 Memoria of lower of lower 08-10 21:07:01 21:07:01 l back and back and 17:00: Ger khanna pelvis, pelvis, 00 initial initial encounter encounter 08/10/2020 [facility] Allergies, Adverse Reactions, Alerts This patient has no known allergies or adverse reactions. Social History Smoking Status Start Date Stop Date Source [facility] Medications Ordered Filled Start Stop Current Ordering Indication Dosage Frequency Signature Comments Components Source Medication Medication Date Date Medication? Clinician (SIG) Name Name Morphine No 4 mg, Memoria 08-10 Route: l 06:37: IVP, ONCE, [place] 00 Dosing Weight 127, kg, Priority: STAT, Start date: 08/10/20 1:37:00 CDT, Stop date: 08/10/20 1:37:00 CDT Morphine 2020-0 No 4 mg, Memoria 08-10 Route: l 06:37: IVP, ONCE, Jeet 00 Dosing Weight 127, kg, Priority: STAT, Start date: 08/10/20 1:37:00 CDT, Stop date: 08/10/20 1:37:00 CDT Saline 0 No Notes: Memoria Flush 0.9% 6-03 Same as: l 04:00: BD Jeet 00 Posiflush Sterile Saline No Notes: Memoria Flush 0.9% 6-03 Same as: l 04:00: BD Formoso 00 Posiflush Sterile Dilaudid 2020-0 No 1 mg, Memoria 08-10 Route: l 03:59: IVP, ONCE, Formoso 00 Dosing Weight 127, kg, Priority: STAT, Start date: 08/09/20 22:59:00 CDT, Stop date: 08/09/20 22:59:00 CDT Dilaudid 2020-0 No 1 mg, Memoria 08-10 Route: l 03:59: IVP, ONCE, [place] 00 Dosing Weight 127, kg, Priority: STAT, Start [...] T PO BID a l UTD UTD UTD [facility] methyldopa methyldopa No [...] COVID-19, mRNA, COVID-19, mRNA, 2020-07-11 Completed Jomar lowry LNP-S, PF, 100 LNP-S, PF, 100 13:00:49 [facility] mcg/0.5 mL dose mcg/0.5 mL dose Outr each Program COVID-19, mRNA, COVID-19, mRNA, 2020-06-13 Completed Jomar lowry LNP-S, PF, 100 LNP-S, PF, 100 13:14:20 [facility] mcg/0.5 mL dose mcg/0.5 mL dose Outr each Program influenza virus 2011-12-07 Completed [facility] Formoso vaccine, inactivated 16:35:00 influenza virus 2011-12-07 Completed [facility] Jeet vaccine, inactivated 16:35:00 pneumococcal 2011-12-07 Completed [facility] Her clay 23-valent vaccine 16:33:00 pneumococcal 2011-12-07 Completed [facility] Her clay 23-valent vaccine 16:33:00 Vital Signs Vital Name Observation Time Observation Value Comments Source Temperature Oral (F) 2020-08-10 10:43:00 98.2 F [facility] Heart Rate 2020-08-10 10:43:00 [facility] Respitory Rate 2020-08-10 10:43:00 Memori al Formoso Systolic (mm Hg) 2020-08-10 10:43:00 Jamin rial Jeet Diastolic (mm Hg) 2020-08-10 10:43:00 Mem orial [facility] Height 2020-08-10 03:13:00 185.42 cm [facility] BMI Calculated 2020-08-10 03:13:00 Memori al Jeet Weight 2020-08-10 03:13:00 [facility] Systolic (mm Hg) 2020-08-10 03:13:00 Jamin rial Jeet Diastolic (mm Hg) 2020-08-10 03:13:00 Mem orial Jeet Heart Rate 2020-08-10 03:13:00 [facility] Respitory Rate 2020-08-10 03:13:00 Memori al [facility] Temperature Oral (F) 2020-08-10 03:13:00 97.2 F [facility] Procedures This patient has no known procedures. Encounters Start End Encounter Admission Attending Care Care Encounter Source Date/Time Date/Time Type Type Clinicians Facility Department ID 2020-08-10 2020-08-10 Emergency [facility] [id number] Memoria 03:09:00 10:44:00 r Formoso 51 l [facility] 2020-08-10 2020-08-10 Emergency [facility] 96589 [id number] Memoria 03:09:00 10:44:00 r Formoso 51 l [facility] 2020-08-09 2020-08-10 Outpatient Lester GIO [facility] [id number] 22:09:00 05:44:00 Adelia [place] 2020-08-09 2020-08-10 Emergency E FRAGOSO, [facility] [address] [facility] 21:03:00 05:44:00 ADELIA 2020-07-11 2020-07-11 Outpatient Isabelle [facility] [address] 01:06:00 01:06:00 [facility] 2020-07-11 [id number] [place] [facility]00 00:00:00 Kayleigh Julian MD: [address] [facility] [place] [id number] h , Ph. Program 2020-06-13 2020-06-13 Outpatient Isabelle [facility] [id number] 01:20:00 01:20:00 [facility]406 [facility] 2020-06-13 2020-06-13 Janice [place]OP [place] [id number] [place] 00:00:00 00:00:00 Kayleigh Julian MD: [address] [facility] [place] [phone] h , Ph. Program 2020-04-05 2020-04-05 Outpatient Isabelle [facility] [id number] 04:46:00 04:46:00 [facility]127 [facility] 2020-01-26 2020-01-26 Outpatient Brown_R [facility]G [id number] [place] 02:19:00 02:19:00 [id number] [facility] Results Test Description Test Time Test Comments Results Result Comments Source BLOOD BANK RESULTS 2020-08-10 06:24:00 Test Item Value Reference Range Interpretation Comme nts ABO/Rh (test code = ABO/Rh) O NEG [facility] [id number] 06:24:00 Test Item Value Reference Range Interpretation Comments Antibody Scrn (test Negative (08/10/20 1:24 code = Antibody Scrn) AM) [facility] [id number] 06:24:00 Test Item Value Reference Range Interpretation Comments ABO/Rh (test code = ABO/Rh) O NEG [facility] [id number] 06:24:00 Test Item Value Reference Range Interpretation Comments Antibody Scrn (test Negative (08/10/20 1:24 code = Antibody Scrn) AM) [facility] [id number] 05:10:00 Test Item Value Reference Range Interpretation Comments Glucose Lvl (test code = Glucose Lvl) 114 70-99 [facility] [employer] [id number] 05:10:00 Test Item Value Reference Range Interpretation Comments BUN (test code = BUN) 23 7-22 [facility] [id number] 05:10:00 Test Item Value Reference Range Interpretation Comments Creatinine Lvl (test code = Creatinine 0.86 0.50-1.40 Lvl) [facility] [id number] 05:10:00 Test Item Value Reference Range Interpretation Comments Sodium Lvl (test code = Sodium Lvl) 141 135-145 [facility] Alex and Ani2021-06-03 05:10:00 Test Item Value Reference Range Interpretation Comments Potassium Lvl (test code = Potassium 3.7 3.5-5.1 Lvl) [facility] [id number] 05:10:00 Test Item Value Reference Range Interpretation Comments Chloride Lvl (test code = Chloride Lvl) 108 95-109 [facility] [employer] [id number] 05:10:00 Test Item Value Reference Range Interpretation Comments CO2 (test code = CO2) 27 24-32 [facility] [employer] [id number] 05:10:00 Test Item Value Reference Range Interpretation Comments Calcium Lvl (test code = Calcium Lvl) 8.4 8.5-10.5 [facility] [id number] 05:10:00 Test Item Value Reference Range Interpretation Comments AGAP (test code = AGAP) 9.7 10.0-20.0 [facility] [id number] 05:10:00 Test Item Value Reference Range Interpretation Comments eGFR (test code = eGFR) 100 [id number] 05:10:00 Test Item Value Reference Range Interpretation Comments Segs (test code = Segs) 55.4 45.0-75.0 [place] 750061-06-03 05:10:00 Test Item Value Reference Range Interpretation Comments Lymphocytes (test code = Lymphocytes) 33.9 20.0-40.0 [place] 750061-06-03 05:10:00 Test Item Value Reference Range Interpretation Comments Monocytes (test code = Monocytes) 8.4 2.0-12.0 [place] 750061-06-03 05:10:00 Test Item Value Reference Range Interpretation Comments Eosinophils (test code = 1.7 See_Comment [A utomated message] The Eosinophils) system which ge nerated this result tra nsmitted reference range : <=4.0. The reference r thiago was not used to int erpret this result as normal/abnormal . [place] 750061-06-03 05:10:00 Test Item Value Reference Range Interpretation Comments Basophils (test code = 0.6 See_Comment [Aut omated message] The Basophils) system which ge nerated this result tra nsmitted reference range : <=1.0. The reference r thiago was not used to int erpret this result as normal/abnormal . [id number] 05:10:00 Test Item Value Reference Range Interpretation Comments Neutrophils # (test code = Neutrophils 4.0 1.5-8.1 #) [id number] 05:10:00 Test Item Value Reference Range Interpretation Comments Lymphocytes # (test code = Lymphocytes 2.4 1.0-5.5 #) [place] 750061-06-03 05:10:00 Test Item Value Reference Range Interpretation Comments Monocytes # (test code 0.6 See_Comment [Aut omated message] The = Monocytes #) system which generated this result tra nsmitted reference range : <=0.8. The reference r thiago was not used to int erpret this result as normal/abnormal . [place] 750061-06-03 05:10:00 Test Item Value Reference Range Interpretation Comments Eosinophils # (test code 0.1 See_Comment [A utomated message] The = Eosinophils #) system whic h generated this result tra nsmitted reference range : <=0.5. The reference r thiago was not used to int erpret this result as normal/abnormal . [id number] 05:10:00 Test Item Value Reference Range Interpretation Comments WBC X 10x3 (test code = WBC X 10x3) 7.2 3.7-10.4 [place] 750061-06-03 05:10:00 Test Item Value Reference Range Interpretation Comments RBC X 10x6 (test code = RBC X 10x6) 4.36 4.70-6.10 [id number] 05:10:00 Test Item Value Reference Range Interpretation Comments Hgb (test code = Hgb) 13.1 14.0-18.0 [place] 750061-06-03 05:10:00 Test Item Value Reference Range Interpretation Comments Hct (test code = Hct) 37.7 42.0-54.0 [id number] 05:10:00 Test Item Value Reference Range Interpretation Comments MCV (test code = MCV) 86.5 80.0-94.0 [facility]icsY[id number] 05:10:00 Test Item Value Reference Range Interpretation Comments MCH (test code = MCH) 30.1 pg 27.0-31.0 [facility] ClinicsRomalyjVYJOBONHHZ8607-08-65 05:10:00 Test Item Value Reference Range Interpretation Comments MCHC (test code = MCHC) 34.8 32.0-36.0 [facility] ClinicsVhtyaxvCICUCJLHKQ4828-16-27 05:10:00 Test Item Value Reference Range Interpretation Comments RDW (test code = RDW) 14.7 11.5-14.5 [place] 750061-06-03 05:10:00 Test Item Value Reference Range Interpretation Comments Platelet (test code = Platelet) 106 133-450 [facility] Cl[id number] 05:10:00 Test Item Value Reference Range Interpretation Comments MPV (test code = MPV) 7.1 7.4-10.4 [place] 750061-06-03 05:10:00 Test Item Value Reference Range Interpretation Comments ACT (TEG) Rapid (test code = ACT (TEG) 121 s 86-118 Rapid) [id number] 05:10:00 Test Item Value Reference Range Interpretation Comments Split Point Rapid (test code = Split 0.7 min Point Rapid) [place] 750061-06-03 05:10:00 Test Item Value Reference Range Interpretation Comments R-time Rapid (test code = R-time 0.8 min 0.4-0.7 Rapid) [place] [address]-06-03 05:10:00 Test Item Value Reference Range Interpretation Comments K-time Rapid (test code = K-time 1.5 min 0.6-2.3 Rapid) [place] 750061-06-03 05:10:00 Test Item Value Reference Range Interpretation Comments Angle Rapid (test code = Angle 74 degrees 64-80 Rapid) [place] 750061-06-03 05:10:00 Test Item Value Reference Range Interpretation Comments Max Amplitude Rapid (test code = Max 63 mm 52-71 Amplitude Rapid) [place] 750061-06-03 05:10:00 Test Item Value Reference Range Interpretation Comments G-value Rapid (test code = G-value 8.5 5.0-11.6 Rapid) [facility]icsFttfeccQMILYUGPSZ7701-30-98 05:10:00 Test Item Value Reference Range Interpretation Comments Estimated % Lysis Rapid 0.0 See_Comment [Au tomated message] The (test code = Estimated syste m which generated % Lysis Rapid) this result t ransmitted reference range : <=7.5. The reference r thiago was not used to int erpret this result as normal/abnormal . [facility] CenterFjkjgxmDBWJGMQDAK2242-58-33 05:10:00 Test Item Value Reference Range Interpretation Comments Hep C Ab (test code = Hep C Ab) NON-REACTIVE [facility] CenterYjebhivIONYVEGDVM8695-18-65 05:10:00 Test Item Value Reference Range Interpretation Comments Hep Signal to Cut-Off (test code = Hep 0.01 1 Signal to Cut-Off) [facility] CenterSicjumiNVVSIGTKWS2044-41-49 05:10:00 Test Item Value Reference Range Interpretation Comments [facility] HIV 4th GEN (test Negative *NA*(08/10/20 code = CDC HIV 4th 12:10 AM) GEN) [facility]2021-06-03 05:10:00 Test Item Value Reference Range Interpretation Comments Glucose Lvl (test code = Glucose Lvl) 114 70-99 [place] 074191-06-03 05:10:00 Test Item Value Reference Range Interpretation Comments BUN (test code = BUN) 23 7-22 [place] 074191-06-03 05:10:00 Test Item Value Reference Range Interpretation Comments Creatinine Lvl (test code = Creatinine 0.86 0.50-1.40 Lvl) [place] 074191-06-03 05:10:00 Test Item Value Reference Range Interpretation Comments Sodium Lvl (test code = Sodium Lvl) 141 135-145 [place] 074191-06-03 05:10:00 Test Item Value Reference Range Interpretation Comments Potassium Lvl (test code = Potassium 3.7 3.5-5.1 Lvl) [place] 074191-06-03 05:10:00 Test Item Value Reference Range Interpretation Comments Chloride Lvl (test code = Chloride Lvl) 108 95-109 [place] 074191-06-03 05:10:00 Test Item Value Reference Range Interpretation Comments CO2 (test code = CO2) 27 24-32 [place] 074191-06-03 05:10:00 Test Item Value Reference Range Interpretation Comments Calcium Lvl (test code = Calcium Lvl) 8.4 8.5-10.5 [place] 074191-06-03 05:10:00 Test Item Value Reference Range Interpretation Comments AGAP (test code = AGAP) 9.7 10.0-20.0 [place] 074191-06-03 05:10:00 Test Item Value Reference Range Interpretation Comments eGFR (test code = eGFR) 100 [place] 750061-06-03 05:10:00 Test Item Value Reference Range Interpretation Comments Segs (test code = Segs) 55.4 45.0-75.0 [place] [address]-06-03 05:10:00 Test Item Value Reference Range Interpretation Comments Lymphocytes (test code = Lymphocytes) 33.9 20.0-40.0 [place] [address]-06-03 05:10:00 Test Item Value Reference Range Interpretation Comments Monocytes (test code = Monocytes) 8.4 2.0-12.0 [place] 750061-06-03 05:10:00 Test Item Value Reference Range Interpretation Comments Eosinophils (test code = 1.7 See_Comment [A utomated message] The Eosinophils) system which ge nerated this result tra nsmitted reference range : <=4.0. The reference r thiago was not used to int erpret this result as normal/abnormal . [place] 750061-06-03 05:10:00 Test Item Value Reference Range Interpretation Comments Basophils (test code = 0.6 See_Comment [Aut omated message] The Basophils) system which ge nerated this result tra nsmitted reference range : <=1.0. The reference r thiago was not used to int erpret this result as normal/abnormal . [place] 750061-06-03 05:10:00 Test Item Value Reference Range Interpretation Comments Neutrophils # (test code = Neutrophils 4.0 1.5-8.1 #) [place] 750061-06-03 05:10:00 Test Item Value Reference Range Interpretation Comments Lymphocytes # (test code = Lymphocytes 2.4 1.0-5.5 #) [place] 750061-06-03 05:10:00 Test Item Value Reference Range Interpretation Comments Monocytes # (test code 0.6 See_Comment [Aut omated message] The = Monocytes #) system which generated this result tra nsmitted reference range : <=0.8. The reference r thiago was not used to int erpret this result as normal/abnormal . [place] 750061-06-03 05:10:00 Test Item Value Reference Range Interpretation Comments Eosinophils # (test code 0.1 See_Comment [A utomated message] The = Eosinophils #) system whic h generated this result tra nsmitted reference range : <=0.5. The reference r thiago was not used to int erpret this result as normal/abnormal . [facility]icsYkmdwubDAUUPTJHXV2673-10-94 05:10:00 Test Item Value Reference Range Interpretation Comments WBC X 10x3 (test code = WBC X 10x3) 7.2 3.7-10.4 [place] 750061-06-03 05:10:00 Test Item Value Reference Range Interpretation Comments RBC X 10x6 (test code = RBC X 10x6) 4.36 4.70-6.10 [place] 750061-06-03 05:10:00 Test Item Value Reference Range Interpretation Comments Hgb (test code = Hgb) 13.1 14.0-18.0 [facility]icsWgxaiteDXMZLBBXMH3329-61-71 05:10:00 Test Item Value Reference Range Interpretation Comments Hct (test code = Hct) 37.7 42.0-54.0 [place] 750061-06-03 05:10:00 Test Item Value Reference Range Interpretation Comments MCV (test code = MCV) 86.5 80.0-94.0 [place] 750061-06-03 05:10:00 Test Item Value Reference Range Interpretation Comments MCH (test code = MCH) 30.1 pg 27.0-31.0 [facility]icsBxegamiCRUKADOPMT8795-68-15 05:10:00 Test Item Value Reference Range Interpretation Comments MCHC (test code = MCHC) 34.8 32.0-36.0 [place] 750061-06-03 05:10:00 Test Item Value Reference Range Interpretation Comments RDW (test code = RDW) 14.7 11.5-14.5 [facility]icsPbmypsgQMFJXHBEUU0884-55-57 05:10:00 Test Item Value Reference Range Interpretation Comments Platelet (test code = Platelet) 106 133-450 [facility] ClinicsRlawvmvZJYZAYFLJH7399-13-69 05:10:00 Test Item Value Reference Range Interpretation Comments MPV (test code = MPV) 7.1 7.4-10.4 [facility]icsEdlidgmAYZPJCLSJX4320-24-43 05:10:00 Test Item Value Reference Range Interpretation Comments ACT (TEG) Rapid (test code = ACT (TEG) 121 s 86-118 Rapid) [facility]icsFxodnbgBHUOJKQZWE1013-44-93 05:10:00 Test Item Value Reference Range Interpretation Comments Split Point Rapid (test code = Split 0.7 min Point Rapid) [place] 750061-06-03 05:10:00 Test Item Value Reference Range Interpretation Comments R-time Rapid (test code = R-time 0.8 min 0.4-0.7 Rapid) [facility]icsUvtqkjjULZUPYZLGF3467-55-06 05:10:00 Test Item Value Reference Range Interpretation Comments K-time Rapid (test code = K-time 1.5 min 0.6-2.3 Rapid) [facility]icsScfokfkQXZDYVTBUP0540-94-53 05:10:00 Test Item Value Reference Range Interpretation Comments Angle Rapid (test code = Angle 74 degrees 64-80 Rapid) [facility] ClinicsCogtqldSLSTUIYGBP7286-20-63 05:10:00 Test Item Value Reference Range Interpretation Comments Max Amplitude Rapid (test code = Max 63 mm 52-71 Amplitude Rapid) [facility] ClinicsBqhvjjbJGJCFSRESJ9158-16-47 05:10:00 Test Item Value Reference Range Interpretation Comments G-value Rapid (test code = G-value 8.5 5.0-11.6 Rapid) [facility]icsPavgdxuIZXTQONDQY3823-36-24 05:10:00 Test Item Value Reference Range Interpretation Comments Estimated % Lysis Rapid 0.0 See_Comment [Au tomated message] The (test code = Estimated syste m which generated % Lysis Rapid) this result t ransmitted reference range : <=7.5. The reference r thiago was not used to int erpret this result as normal/abnormal . [facility] CenterZpkwzoaSLEGJAFNRC9362-91-92 05:10:00 Test Item Value Reference Range Interpretation Comments Hep C Ab (test code = Hep C Ab) NON-REACTIVE [facility] CenterHxracwbPJLWFWYGBM4627-76-37 05:10:00 Test Item Value Reference Range Interpretation Comments Hep Signal to Cut-Off (test code = Hep 0.01 1 Signal to Cut-Off) [facility] CenterVolnsirCPKXCEKMFD9472-42-97 05:10:00 Test Item Value Reference Range Interpretation Comments [facility] HIV 4th GEN (test Negative *NA*(08/10/20 code = CDC HIV 4th 12:10 AM) GEN) [facility]
[2022-04-17 09:09] LABS: Absolute Lymphocytes (CBC) 2.1 K/uL (0.7-4.9); Hematocrit 40.5 % (39.6-49.0); Lymphocytes % 27.5 % (15.3-44.8); MPV 6.7 fL (7.6-11.3); RBC Red Blood Cell Count 4.71 M/uL (4.33-5.43)
[2022-04-17 09:12] LABS: Protime INR 0.94
[2022-04-17 09:31] LABS: Albumin 3.7 g/dL (3.4-5.0); Bilirubin Direct 0.1 mg/dL (0-0.2); Bilirubin Total 0.3 mg/dL (0.2-1.0); Magnesium 2.1 mg/dL (1.6-2.4); Potassium 3.6 mmol/L (3.5-5.1); Protein, Total 7.6 g/dL (6.4-8.2); Troponin High Sensitivity 17.2 pg/mL (<58.9)
--- NOTE | 2022-04-17 09:38 | RAD REPORT ---
EXAM DESCRIPTION: Bri Single View04/17/2022 9:16 am CLINICAL HISTORY: Chest pain COMPARISON: November 2021 FINDINGS: The lungs appear clear of acute infiltrate. The heart is normal size IMPRESSION: No acute abnormalities displayed
[2022-04-17 09:49] LABS: SARS-CoV-2 Antigen Rapid Res Negative (Negative)
[2022-04-17] MEDS ORDERED: NA CHLORIDE 0.9% 500 ML ONE (10:09)
--- NOTE | 2022-04-17 10:16 | RAD REPORT ---
EXAM DESCRIPTION: CT - Head Brain Wo Cont - 04/17/2022 9:55 am CLINICAL HISTORY: ^ MENTAL STATUS CHANGE COMPARISON: 12/01/2021 TECHNIQUE: Axial 5 mm thick images of the head were obtained without IV contrast. All CT scans are performed using dose optimization technique as appropriate and may include automated exposure control or mA/KV adjustment according to patient size. FINDINGS: No intracranial hemorrhage, mass, edema or shift of mid-line structures. No acute infarcti on changes seen. No abnormal extra-axial fluid collections. Mastoid air cells are well aerated. Up to moderate mucosal thickening throughout the paranasal sinus es. No acute bony findings. IMPRESSION: No acute intracranial process. Up to moderate mucosal thickening throughout the paranasal sinuses.
--- NOTE | 2022-04-17 11:24 | EDPHYS ---
Physician Documentation [facility] Name: Jitendra Holliday Age: 51 yrs Sex: Male : 1970 Arrival Date: 04/17/2022 Time: 08:33 Bed 5 Private MD: Venancio Barber ED Physician Sander Arciniega HPI: 04/17 08:53 This 51 yrs old Male presents to ER via Ambulatory with complaints of Chest Tightness, pm1 Numbness Of Arm - left. 08:53 The patient or guardian reports chest pain that is located primarily in the mid-sternal pm1 area. Onset: 4 day(s) ago. The pain. The pain does not radiate. Associated signs and symptoms: Pertinent positives: left arm pain and numbness, shortness of breath with moderate distance of walking, Pertinent negatives: headache, nausea, vomiting. The chest pain is described as a pressure. Duration: The patient or guardian reports multiple episodes, lasts 15-20 minutes. Last episode of chest pain last night. Modifying factors: The symptoms are alleviated by nothing. the symptoms are aggravated by nothing. Severity of pain: in the emergency department the pain has resolved since last night, is a 0 / 10. The patient has been recently seen by a physician: Dr Joseph last week for carotid artery stenosis diagnosed in November 2021. 51-year-old patient presents to the ER with complaints of chest pressure and numbness/pain of left arm onset 4 days ago, Friday. Patient reports chest pain lasts for 15 to 20 minutes. Not constant. Last episode was last night, and patient is currently experiencing any pain. Patient also reports concerns of decreased mental acuity, inability to get his words out easily for the past 2 months. Patient with history of TIA. Historical: - Allergies: 08:53 No Known Allergies; aa5 - PMHx: 08:53 Diabetes - NIDDM; Hypertension; Hypothyroidism; insomnia; microalbuminuria; TIA; aa5 - Immunization history:: Adult Immunizations unknown. - Social history:: Smoking status: Patient denies any tobacco usage or history of. ROS: 08:53 Constitutional: Negative for fever, chills, and weight loss. pm1 08:53 Abdomen/GI: Negative for abdominal pain, nausea, vomiting, diarrhea, and constipation, Back: Negative for injury and pain, MS/Extremity: Negative for injury and deformity, Skin: Negative for injury, rash, and discoloration. 08:53 Cardiovascular: Positive for chest pain, Negative for edema, palpitations. 08:53 Respiratory: Positive for cough, "sounds productive", shortness of breath, on exertion. 08:53 Neuro: Positive for Brain fog for the past 2 months, hard to get his words out, Negative for headache, weakness. 08:53 All other systems are negative. Exam: 08:53 Constitutional: This is a well developed, well nourished patient who is awake, alert, pm1 and in no acute distress. Head/Face: Normocephalic, atraumatic. 08:53 Back: No spinal tenderness. No costovertebral tenderness. Full range of motion. Skin: Warm, dry with normal turgor. Normal color with no rashes, no lesions, and no evidence of cellulitis. MS/ Extremity: Pulses equal, no cyanosis. Neurovascular intact. Full, normal range of motion. 08:53 Eyes: Exam is negative for acute changes. 08:53 ENT: Exam is negative for acute changes, Mouth: no acute changes, Lips: normal, moist, Oral mucosa: normal, pink and intact, moist. 08:53 Cardiovascular: Exam negative for acute changes, Rate: normal, Rhythm: regular, Pulses: no pulse deficits are appreciated, Heart sounds: normal, normal S1and S2. 08:53 Respiratory: Exam negative for acute changes, respiratory distress, shortness of breath, Breath sounds: are clear throughout. 08:53 Abdomen/GI: Exam negative for acute changes. 08:53 Neuro: Exam negative for acute changes, Orientation: is normal, Mentation: is normal, Motor: moves all fours. Vital Signs: 08:42 BP 187 / 89; Pulse 73; Resp 20 S; Temp 97.5; Pulse Ox 98% on R/A; Weight 106.59 kg (R); aa5 Height 6 ft. 1 in. (185.42 cm) (R); Pain 0/10; 10:08 BP 170 / 98; Pulse 71; Resp 16; Pulse Ox 98% ; bp 11:21 BP 163 / 86; Pulse 67; Resp 16; Pulse Ox 98% ; bp 08:42 Body Mass Index 31.00 (106.59 kg, 185.42 cm) aa5 MDM: 08:41 Patient medically screened. pm1 09:45 ED course: requested CT head for decreased mental acuity over the past two months. pm1 concerned due to history of TIA. 11:05 Data reviewed: vital signs. pm1 11:15 Management of patient was discussed with the following: Supply Chain Specialist: Discussed with pm1 Jake and ER findings. He requested repeat troponin and if negative he can follow up in the office. Informed patient and his discussion with Jake. 11:15 Differential diagnosis: acute myocardial infarction, chest wall pain, congestive heart pm1 failure pneumonia, pulmonary embolus, stable angina, unstable angina. 11:22 Refusal of service: The patient/guardian displays adequate decision making capability pm1 and despite a detailed discussion of alternatives, benefits, risks, and consequences refuses: repeat troponin as recommended by Dr Joseph. The patient and his want to be discharged now and to follow up with Dr Joseph. 04/17 08:53 Order name: Basic Metabolic Panel; Complete Time: 09:33 pm04/17 08:53 Order name: CBC with Diff; Complete Time: 09:25 pm04/17 08:53 Order name: LFT's; Complete Time: 09:33 pm04/17 08:53 Order name: Magnesium; Complete Time: 09:33 pm04/17 08:53 Order name: NT PRO-BNP; Complete Time: 09:33 pm04/17 08:53 Order name: PT-INR; Complete Time: 09:14 pm04/17 08:53 Order name: Troponin HS; Complete Time: 09:33 pm04/17 08:53 Order name: XRAY Chest (1 view); Complete Time: 09:45 pm04/17 08:53 Order name: EKG; Complete Time: 08:53 pm04/17 08:53 Order name: Cardiac monitoring; Complete Time: 08:55 pm04/17 08:53 Order name: EKG - Nurse/Tech; Complete Time: 08:55 pm04/17 09:10 Order name: SARS RAPID; Complete Time: 09:53 pm04/17 09:47 Order name: CT Head Brain wo Cont; Complete Time: 10:17 pm04/17 08:53 Order name: IV Saline Lock; Complete Time: 08:55 pm04/17 08:53 Order name: Labs collected and sent; Complete Time: 08:55 pm1 04/17 08:53 Order name: O2 Per Protocol; Complete Time: 08:55 pm1 02 08:53 Order name: O2 Sat Monitoring; Complete Time: 08:55 pm1 EC:53 Rate is 71 beats/min. Rhythm is regular, Sinus Rhythm with 1st degree heart block. QT pm1 interval is normal. No Q waves. T waves are Normal. No ST changes noted. Clinical impression: Sinus rhythm with 1st degree AV block. Administered Medications: 10:08 Drug: NS 0.9% 500 ml Route: IV; Rate: bolus; Site: right antecubital; bp 12:20 Follow up: IV Status: Completed infusion; IV Intake: 500ml bp Disposition: 18:50 Co-signature as Attending Physician, Sander CAMARENA was immediately available on-site ms3 in the Emergency Department for consultation in the care of the patient. Disposition Summary: 04/17/22 11:24 Discharge Ordered Location: Home pm1 Problem: new pm1 Symptoms: have improved pm1 Condition: Stable pm1 Diagnosis - Chest pain, unspecified pm1 Followup: pm1 - With: Emergency Department - When: As needed - Reason: Worsening of condition Followup: pm1 - With: Alen Joseph MD - When: 2 - 3 days - Reason: Recheck today's complaints, Continuance of care, Re-evaluation by your physician Discharge Instructions: - Discharge Summary Sheet pm1 - Nonspecific Chest Pain, Adult pm1 Forms: - Medication Reconciliation Form pm1 - Thank You Letter pm1 - Antibiotic Education pm1 - Prescription Opioid Use pm1 Signatures: Dispatcher [employer] Germaine Sung, RN RN aa5 Frank Jackson, SAMUEL NURSE TRANSITIONAL pm1 Ferdinand Gibson, APRIL RN Sander Reeder DO DO ms3 Corrections: (The following items were deleted from the chart) 08:54 08:52 Social history: Smoking status: unknown bp bp 08:54 08:52 Immunization history: Adult Immunizations up to date, bp bp
--- NOTE | 2022-04-17 11:24 | ER ---
Nurse's Notes [facility] Name: Jitendra Holliday Age: 51 yrs Sex: Male : 1970 Arrival Date: 04/17/2022 Time: 08:33 Bed 5 Private MD: Venancio Barber Diagnosis: Chest pain, unspecified Presentation: 04/17 08:42 Chief complaint: Patient states: chest pain radiating down left arm, pt states "when aa5 the pain comes my arms gets numb". Pt reports symptoms began approximately 2 months ago. Describes chest pain "as something sitting on my chest". Pt reports episodes last 15-20 mins. 08:42 Coronavirus screen: cough unrelated to allergies. Ebola Screen: Patient denies travel aa5 to an Ebola-affected area in the 21 days before illness onset. Initial Sepsis Screen: Does the patient meet any 2 criteria? No. Patient's initial sepsis screen is negative. Does the patient have a suspected source of infection? No. Patient's initial sepsis screen is negative. Risk Assessment: Do you want to hurt yourself or someone else? Patient reports no desire to harm self or others. Onset of symptoms was 2021. 08:42 Acuity: JOHANNA 2 aa5 08:42 Method Of Arrival: Ambulatory aa5 Triage Assessment: 09:00 General: Appears in no apparent distress. uncomfortable, Behavior is calm, cooperative, bp appropriate for age. Pain: Complains of pain in chest. EENT: No deficits noted. Neuro: No deficits noted. Cardiovascular: Rhythm is sinus rhythm. Respiratory: No deficits noted. GI: No signs and/or symptoms were reported involving the gastrointestinal system. : No signs and/or symptoms were reported regarding the genitourinary system. Derm: No deficits noted. Musculoskeletal: No deficits noted. Historical: - Allergies: 08:53 No Known Allergies; aa5 - PMHx: 08:53 Diabetes - NIDDM; Hypertension; Hypothyroidism; insomnia; microalbuminuria; TIA; aa5 - Immunization history:: Adult Immunizations unknown. - Social history:: Smoking status: Patient denies any tobacco usage or history of. Screenin:54 [facility] ED Fall Risk Assessment (Adult) History of falling in the last 3 months, bp including since admission. Abuse screen: Denies threats or abuse. Denies injuries from another. Nutritional screening: No deficits noted. Tuberculosis screening: No symptoms or risk factors identified. Assessment: 08:52 Reassessment: SEE TRIAGE NOTE. bp 10:08 Reassessment: PT RETURNED FROM CT. bp 11:22 Reassessment: No changes from previously documented assessment. Patient and/or family bp updated on plan of care and expected duration. Pain level reassessed. 12:18 Reassessment: PT DC HOME. bp Vital Signs: 08:42 BP 187 / 89; Pulse 73; Resp 20 S; Temp 97.5; Pulse Ox 98% on R/A; Weight 106.59 kg (R); aa5 Height 6 ft. 1 in. (185.42 cm) (R); Pain 0/10; 10:08 BP 170 / 98; Pulse 71; Resp 16; Pulse Ox 98% ; bp 11:21 BP 163 / 86; Pulse 67; Resp 16; Pulse Ox 98% ; bp 08:42 Body Mass Index 31.00 (106.59 kg, 185.42 cm) aa5 ED Course: 08:33 Patient arrived in ED. am2 08:33 Venancio Barber MD is Private Physician. am2 08:40 [facility] pm1 08:40 Sander Arciniega DO is Attending Physician. pm1 08:42 Arm band placed on Patient placed in an exam room, on a stretcher. aa5 08:50 Inserted saline lock: 20 gauge in right antecubital area, using aseptic technique. vg1 Blood collected. 08:52 Ferdinand Gibson, APRIL is Primary Nurse. bp 08:53 Triage completed. aa5 08:54 Patient has correct armband on for positive identification. Client placed on continuous bp cardiac and pulse oximetry monitoring. NIBP monitoring applied. 09:18 XRAY Chest (1 view) In Process Unspecified. EDMS 09:56 CT Head Brain wo Cont In Process Unspecified. EDMS 11:23 Alen Joseph MD is Referral Physician. pm1 12:18 No provider procedures requiring assistance completed. IV discontinued, intact, bp bleeding controlled, No redness/swelling at site. Pressure dressing applied. Patient maintains SpO2 saturation greater than 95% on room air. Administered Medications: 10:08 Drug: NS 0.9% 500 ml Route: IV; Rate: bolus; Site: right antecubital; bp 12:20 Follow up: IV Status: Completed infusion; IV Intake: 500ml bp Medication: 12:18 VIS not applicable for this client. bp Intake: 12:20 IV: 500ml; Total: 500ml. bp Outcome: 11:24 Discharge ordered by . pm1 12:18 Discharged to home ambulatory, with family. bp 12:18 Condition: stable 12:18 Discharge instructions given to patient, Instructed on discharge instructions, follow up and referral plans. Demonstrated understanding of instructions, follow-up care. 12:20 Patient left the ED. bp Signatures: Dispatcher [employer] EDMS Germaine Linda, RN RN aa5 Frank Jackson, EXAM PROCTOR EXAM PROCTOR pm1 Lacie Landis am2 Ferdinand Gibson RN RN bp She Judd RN RN vg1 Corrections: (The following items were deleted from the chart) 08:54 08:52 Social history: Smoking status: unknown bp bp 08:54 08:52 Immunization history: Adult Immunizations up to date, bp bp 10:21 10:08 Pulse 71bpm; Resp 16bpm; Pulse Ox 98%; bp bp
[2022-04-17 12:44] VITALS: TEMP 97.5; O2SAT 98
[2022-04-17 12:46] VITALS: BP 163/86
--- NOTE | 2022-04-18 07:57 | EKG ---
Test Date: 2022-04-17 Test Time: 08:47:38 Administrative Services Officer: JOE MEASUREMENT RESULTS: Intervals: Rate: 71 RI: 232 QRSD: 98 QT: 384 QTc: 417 Currie: P: 44 RI: 232 QRS: 77 T: 33 INTERPRETIVE STATEMENTS: Sinus rhythm with 1st degree AV block with premature supraventricular complexes Otherwise normal ECG Compared to ECG 11/30/2021 22:04:05 Atrial premature complex(es) now present Electronically Signed On 04-18-22 07:54:50 CREDIT CONTROL OFFICER by Alen Joseph
== END 2022-04-17 12:20 | disposition home or self-care (01) ==
LOC: ER 08:32
DX: R07.89 Other chest pain (principal); I10 Essential (primary) hypertension; Z86.73 Personal history of transient ischemic attack (TIA), and cerebral infarction without residual deficits; Z20.822 Contact with and (suspected) exposure to COVID-19
CPT/HCPCS: 85025; 80048; 36415; 83735; 85610; 80076; 84484; 83880; 70450; 71045; 87811; J7040; 93005

== ENCOUNTER 2023-01-22 18:10 | Inpatient (IN) | payer OTHER, SELFPAY ==
--- OUTSIDE RECORDS SUMMARY | 2023-01-22 18:14 | XMS REPORT | Continuity of Care Document ---
:1970 Author Organization [facility] t Address [address] [facility] [address] [place] [address] Care Team Providers Name Role Phone Darvin Wright Attending Clinician Macario Schaefer Attending Clinician Unavailable Adelia Batista Attending Clinician Nguycarolina_Tho Attending Clinician Unavailable Jaylen Attending Clinician Unavailable Venancio Barber Attending Clinician Unavailable OSIEL HOPE Attending Clinician Unavailable Brooke Russell Attending Clinician Unavailable RAYNE HILL Attending Clinician Unavailable PIO CHÁVEZ Attending Clinician Unavailable [place] Admitting Clinician Nguycarolina_Tho Admitting Clinician Unavailable Jaylen Admitting Clinician Unavailable Payers Payer Name Policy Type Policy Number Effective Date Expiration Date S se[place] [id number] 2016 00:00:00 Problems Condition Condition Condition Status Onset Resolution Last Treating Co mments Source Name Details Category Date Date Treatment Clinician Date THORACIC, THORACIC, Diagnosis Active 2020-09-24 Memoria LUMBAR LUMBAR 08-09 13:12:00 l COMPRESSIO COMPRESSIO 21:05: He wan N N 00 FRACTURES FRACTURES Active 08/09/2020 [facility] Bacterial Bacterial Problem Active 2022-07-26 Memoria pneumonia pneumonia 01:49:40 l (disorder) (disorder) He rmann Active Problem 07/26/2022 [facility] Diabetes Diabetes Problem Active 2022-07-26 Memoria mellitus mellitus 01:49:40 l (disorder) (disorder) He rmann Active Problem 07/26/2022 [facility] History of Past Illness Condition Condition Condition Status Onset Resolution Last Treating Co mments Source Name Details Category Date Date Treatment Clinician Date Contusion Contusion Problem 2020-08-12 2020-08-12 Memoria of lower of lower 08-10 21:07:01 21:07:01 l back and back and 17:00: Ger khanna pelvis, pelvis, 00 initial initial encounter encounter 08/10/2020 08/12/2020 [facility] Allergies, Adverse Reactions, Alerts Allergy Allergy Status Severity Reaction(s) Onset Inactive Treating Comm ents Source Name Type Date Date Clinician No Known No Known Active Memori a Medicati Medicati l on on [place] Allergsamira Allergsamira s s Social History Smoking Status Start Date Stop Date Source Former Smoker [facility] Tobacco smoking status [facility] Medications Ordered Filled Start Stop Current Ordering [...] tablet 50 mcg d a tablet [facility] glyburide glyburide No glyburide [place] 2.5 mg 2.5 mg 2.5 mg da tablet tablet tablet [facility] metformin metformin No metformin [place] 500 mg 500 mg 500 mg da tablet TK 1 tablet TK 1 tablet TK [facility] T PO BID T PO BID 1 T PO BID a l UTD UTD UTD [facility] methyldopa methyldopa No methyldopa [place] 500 mg 500 mg 500 mg da tablet TAKE tablet TAKE tablet [facility] 1 TABLET BY 1 TABLET BY TAKE 1 al MOUTH TWICE MOUTH TWICE TABLET BY [facility] A DAY A DAY MOUTH Outreac TWICE A h DAY Program rosuvastati rosuvastati No rosuvastat [place] n 10 mg n 10 mg in 10 mg da tablet TK 1 tablet TK 1 tablet TK [facility] T PO HS. T PO HS. 1 T PO HS. a l [facility] Program Immunizations Ordered Filled Immunization Date Status Comments [facility] e Immunization Name Name COVID-19, mRNA, COVID-19, mRNA, 2020-07-11 Completed Hadley alen LNP-S, PF, 100 LNP-S, PF, 100 13:00:49 Episco pal mcg/0.5 mL dose mcg/0.5 mL dose [facility] COVID-19, mRNA, COVID-19, mRNA, 2020-06-13 Completed Hadley alen LNP-S, PF, 100 LNP-S, PF, 100 13:14:20 Episco pal mcg/0.5 mL dose mcg/0.5 mL dose [facility] influenza virus Unknown Completed [facility] vaccine, Jeet inactivated pneumococcal Unknown Completed [facility] 23-valent vaccine Jeet Vital Signs Vital Name Observation Time Observation Value Comments Source Temperature Oral (F) 2020-08-10 10:43:00 98.2 [facility] 2020-08-10 10:43:00 Kayla Marcano Respitory Rate 2020-08-10 10:43:00 Sindy Marcos Systolic (mm Hg) 2020-08-10 10:43:00 Jamin rial Jeet Diastolic (mm Hg) 2020-08-10 10:43:00 Mem orial Jeet Temperature Oral (F) 2020-08-10 03:13:00 97.2 F [facility] Height 2020-08-10 03:13:00 185.42 cm [facility] BMI Calculated 2020-08-10 03:13:00 [facility] [place] Weight 2020-08-10 03:13:00 [facility] Systolic (mm Hg) 2020-08-10 03:13:00 Jamin rial [facility] Diastolic (mm Hg) 2020-08-10 03:13:00 Mem orial Jeet Heart Rate 2020-08-10 03:13:00 [facility] Respitory Rate 2020-08-10 03:13:00 Memori al Jeet Procedures This patient has no known procedures. Encounters Start End Encounter Admission Attending Care Care Encounter Source Date/Time Date/Time Type Type Clinicians Facility Department ID 2022-07-23 2022-07-23 Ambulatory MHIE PRESLEYA [id number] [facility] 19:00:00 19:00:00 Pre-Reg Neurology 00 l Desmetevon Marcano 2022-07-23 2022-07-23 Outpatient CLARA ELIZABETH [id number] [facility] 14:00:00 14:00:00 00 l Jeet 2022-07-23 2022-07-23 Outpatient NATHANIEL Wright [id number] 14:00:00 14:00:00 Darvin 00 Cameron 2022-05-27 2022-05-27 Outpatient MANGO Schaefer [facility] [id number] [place] 08:04:00 08:04:00 [id number] [facility] 2020-08-10 2020-08-10 Emergency [facility] [id number] Mem[facility] 03:09:00 10:44:00 [facility] 2020-08-09 2020-08-10 [facility] [id number] 22:09:00 05:44:00 Adelia [place] 2020-07-11 2020-07-11 Outpatient Lulúen_o [facility] [id number] [place] 01:06:00 01:06:00 [facility] 2020-07-11 2020-07-11 Janice [facility] [place] - [id number] M atagor 00:00:00 00:00:00 Kayleigh Julian MD: [address] [facility] [place] [address], [place], [place] [id number] h , Ph. Program 2020-06-13 2020-06-13 Outpatient Lulúen_Hailyo [facility] [id number] [place] 01:20:00 01:20:00 0406 [facility] 2020-06-13 2020-06-13 Janice [facility] [place] - [id number] at[place]or 00:00:00 00:00:00 Kayleigh Julian MD: [address] [facility] - [address], [place], [place]ac [id number] h , Ph. Program 2020-04-05 2020-04-05 Outpatient Ngemmetten_Hailyo [facility] [id number] [place] 04:46:00 04:46:00 0127 [facility] 2020-01-26 2020-01-26 Outpatient Drew_R MMG MMG [id number] [place] 02:19:00 02:19:00 1118 [facility] 2017-07-30 2017-07-30 Outpatient MANGO Barber, [facility] [id number] [place] 16:25:00 16:25:00 Venancio -[id number] [facility] 2017-04-29 2017-04-29 Emergency ER JAYY, [facility] [id number] [place] 11:17:00 12:26:00 OSIEL -[id number] [facility] 2016-12-05 2016-12-05 Outpatient MANGO Russell [facility] [id number] [place] 16:10:00 16:10:00 Brooke -[id number] [facility] 2016-02-19 2016-02-19 Outpatient EL Drew, [facility] [id number] [place] 11:09:00 11:09:00 Brooke -[id number] [facility] 2013-05-06 2013-05-06 Emergency ER LIZ, [facility] [id number] [place] 10:25:00 12:48:00 CLEMENT -[id number] [facility] 2013-03-25 2013-03-25 Emergency ER , [facility] [id number] [place] 19:48:00 22:03:00 WASIM -[id number] [facility] Results Test Description Test Time Test Comments Results Result Comments Source BLOOD BANK RESULTS 2020-08-10 06:24:00 Test Item Value Reference Range Interpretation Comme nts ABO/Rh (test code = ABO/Rh) O [facility]G [facility] [employer] [id number] 06:24:00 Test Item Value Reference Range Interpretation Comments Antibody Scrn (test Negative (08/10/20 1:24 code = Antibody Scrn) AM) [facility] [employer] [id number] 05:10:00 Test Item Value Reference Range Interpretation Comments Glucose Lvl (test code = Glucose Lvl) 114 70-99 [facility] [employer] [id number] 05:10:00 Test Item Value Reference Range Interpretation Comments BUN (test code = BUN) 23 7-22 [facility] [id number] 05:10:00 Test Item Value Reference Range Interpretation Comments Creatinine Lvl (test code = Creatinine 0.86 0.50-1.40 Lvl) [facility] [employer] [id number] 05:10:00 Test Item Value Reference Range Interpretation Comments Sodium Lvl (test code = Sodium Lvl) 141 135-145 [facility] [employer] [id number] 05:10:00 Test Item Value Reference Range Interpretation Comments Potassium Lvl (test code = Potassium 3.7 3.5-5.1 Lvl) [facility] [employer] [id number] 05:10:00 Test Item Value Reference Range Interpretation Comments Chloride Lvl (test code = Chloride Lvl) 108 95-109 [facility] [employer] [id number] 05:10:00 Test Item Value Reference Range Interpretation Comments CO2 (test code = CO2) 27 24-32 [facility]2021-06-03 05:10:00 Test Item Value Reference Range Interpretation Comments Calcium Lvl (test code = Calcium Lvl) 8.4 8.5-10.5 [place] 124451-06-03 05:10:00 Test Item Value Reference Range Interpretation Comments AGAP (test code = AGAP) 9.7 10.0-20.0 [facility]2021-06-03 05:10:00 Test Item Value Reference Range Interpretation Comments eGFR (test code = eGFR) 100 [id number] 05:10:00 Test Item Value Reference Range Interpretation Comments Segs (test code = Segs) 55.4 45.0-75.0 [place] 889721-06-03 05:10:00 Test Item Value Reference Range Interpretation Comments Lymphocytes (test code = Lymphocytes) 33.9 20.0-40.0 [place] 889721-06-03 05:10:00 Test Item Value Reference Range Interpretation Comments Monocytes (test code = Monocytes) 8.4 2.0-12.0 [place] 889721-06-03 05:10:00 Test Item Value Reference Range Interpretation Comments Eosinophils (test code = Eosinophils) 1.7 <=4.0 [place] 889721-06-03 05:10:00 Test Item Value Reference Range Interpretation Comments Basophils (test code = Basophils) 0.6 <=1.0 [place] 889721-06-03 05:10:00 Test Item Value Reference Range Interpretation Comments Neutrophils # (test code = Neutrophils 4.0 1.5-8.1 #) [facility] [id number] 05:10:00 Test Item Value Reference Range Interpretation Comments Lymphocytes # (test code = Lymphocytes 2.4 1.0-5.5 #) [place] 889721-06-03 05:10:00 Test Item Value Reference Range Interpretation Comments Monocytes # (test code = Monocytes #) 0.6 <=0.8 [place] [address]-06-03 05:10:00 Test Item Value Reference Range Interpretation Comments Eosinophils # (test code = Eosinophils 0.1 <=0.5 #) [place] 889721-06-03 05:10:00 Test Item Value Reference Range Interpretation Comments WBC X 10x3 (test code = WBC X 10x3) 7.2 3.7-10.4 [facility] HospitalXhhhyrdQADSKPLWXH9302-27-27 05:10:00 Test Item Value Reference Range Interpretation Comments RBC X 10x6 (test code = RBC X 10x6) 4.36 4.70-6.10 [facility] HospitalXtjofkpGOVRBFLILL8837-64-90 05:10:00 Test Item Value Reference Range Interpretation Comments Hgb (test code = Hgb) 13.1 14.0-18.0 [place] 889721-06-03 05:10:00 Test Item Value Reference Range Interpretation Comments Hct (test code = Hct) 37.7 42.0-54.0 [place] 889721-06-03 05:10:00 Test Item Value Reference Range Interpretation Comments MCV (test code = MCV) 86.5 80.0-94.0 [place] 889721-06-03 05:10:00 Test Item Value Reference Range Interpretation Comments MCH (test code = MCH) 30.1 pg 27.0-31.0 [facility] H[id number] 05:10:00 Test Item Value Reference Range Interpretation Comments MCHC (test code = MCHC) 34.8 32.0-36.0 [facility] HospitalRgqyajbXAUGUYWTAP2727-83-78 05:10:00 Test Item Value Reference Range Interpretation Comments RDW (test code = RDW) 14.7 11.5-14.5 [facility] [id number] 05:10:00 Test Item Value Reference Range Interpretation Comments Platelet (test code = Platelet) 106 133-450 [facility] H[id number] 05:10:00 Test Item Value Reference Range Interpretation Comments MPV (test code = MPV) 7.1 7.4-10.4 [place] 889721-06-03 05:10:00 Test Item Value Reference Range Interpretation Comments ACT (TEG) Rapid (test code = ACT (TEG) 121 s 86-118 Rapid) [facility] [id number] 05:10:00 Test Item Value Reference Range Interpretation Comments Split Point Rapid (test code = Split 0.7 min Point Rapid) [facility] HospitalNllfjxuAVCUGHXAXQ8066-24-40 05:10:00 Test Item Value Reference Range Interpretation Comments R-time Rapid (test code = R-time 0.8 min 0.4-0.7 Rapid) [place] 889721-06-03 05:10:00 Test Item Value Reference Range Interpretation Comments K-time Rapid (test code = K-time 1.5 min 0.6-2.3 Rapid) [place] 889721-06-03 05:10:00 Test Item Value Reference Range Interpretation Comments Angle Rapid (test code = Angle 74 degrees 64-80 Rapid) [place] 889721-06-03 05:10:00 Test Item Value Reference Range Interpretation Comments Max Amplitude Rapid (test code = Max 63 mm 52-71 Amplitude Rapid) [place] 889721-06-03 05:10:00 Test Item Value Reference Range Interpretation Comments G-value Rapid (test code = G-value 8.5 5.0-11.6 Rapid) [place] 889721-06-03 05:10:00 Test Item Value Reference Range Interpretation Comments Estimated % Lysis Rapid (test code = 0.0 <=7.5 Estimated % Lysis Rapid) [place] 353021-06-03 05:10:00 Test Item Value Reference Range Interpretation Comments Hep C Ab (test code = Hep C Ab) NON-REACTIVE [id number] 05:10:00 Test Item Value Reference Range Interpretation Comments Hep Signal to Cut-Off (test code = Hep 0.01 1 Signal to Cut-Off) [place] 353021-06-03 05:10:00 Test Item Value Reference Range Interpretation Comments [facility] HIV 4th GEN (test Negative *NA*(08/10/20 code = CDC HIV 4th 12:10 AM) GEN) [facility]
[2023-01-22 19:56] LABS: Absolute Lymphocytes (CBC) 1.8 K/uL (0.7-4.9); Hematocrit 36.9 % (39.6-49.0); MCV 87.2 fL (80-100); Platelets 122 thou/uL (152-406); RBC Red Blood Cell Count 4.23 M/uL (4.33-5.43)
[2023-01-22 19:59] LABS: Protime INR 1.1
[2023-01-22] MEDS ORDERED: MORPHINE 4 MG/ML SYR ONE (20:05)
[2023-01-22 20:13] LABS: Albumin 3.4 g/dL (3.4-5.0); Bilirubin Total 0.5 mg/dL (0.2-1.0); Protein, Total 7.6 g/dL (6.4-8.2)
[2023-01-22] MEDS ORDERED: HYDROMORPHONE HCL 1 MG/ML INJ ONE (21:13)
[2023-01-22 22:28] LABS: Specific Gravity 1.015 (1.005-1.030); Urine Bacteria None Seen /HPF (<20); Urine Bilirubin NEGATIVE (Negative); Urine Blood Negative (Negative); Urine Clarity Clear (Clear); Urine Color Light-Yellow (Yellow); Urine Glucose NEGATIVE (Negative); Urine Protein TRACE (Negative); Urine RBC None Seen /HPF (None Seen); Urine Urobilinogen Normal (Normal); Urine pH 5.5 (5.0-7.0)
--- NOTE | 2023-01-23 00:50 | P.HP ---
Certification for Inpatient Patient admitted to: Inpatient With expected LOS: <2 Midnights Patient will require the following post-hospital care: None Practitioner: I am a practitioner with admitting privileges, knowledge of patient current condition, hospital course, and medical plan of care. Services: Services provided to patient in accordance with Admission requirements found in Title 42 Section 412.3 of the Code of Federal Regulations Patient History Date of Service: 01/23/23 Reason for admission: Perineal Abscess History of Present Illness: Mr. Holliday is a 52-year-old male with past medical history of noninsulin- dependent type 2 diabetes, hypertension, hypothyroidism, and TIA who presented to the emergency department with complaints of rectal/scrotal pain, difficulty defecating, and difficulty urinating. 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 He is not tachycardic or febrile in emergency department today. CT showed "6.3 x 3 x 5.3 cm fluid collection within the perineal soft tissues, with a somewhat thickened, inflammatory margin, suggesting abscess. No appreciable tract or fistula identified." No significant lab abnormalities. Dr. Zapien was contacted and will take patient to or tomorrow. He was started on vancomycin and cefepime in the emergency department. Will admit to hospitalist service for further management of perineal abscess. Allergies No Known Allergies Allergy (Verified 12/16/16 23:37) Home medications list reviewed: Yes Home Medications: Amlodipine Besylate 10 mg PO DAILY 07/14/11 Metformin HCl 1,000 mg PO BID 07/14/11 Levothyroxine Sodium [Levothroid] 50 mcg PO DAILY #30 tablet 07/17/11 Alprazolam 2 mg PO BEDTIME 12/17/16 Pioglitazone [Actos*] 30 mg PO DAILY 12/17/16 Rosuvastatin [Crestor*] 1 tab PO BEDTIME 12/17/16 Sertraline [Zoloft*] 25 mg PO BEDTIME 12/17/16 carvediloL [Carvedilol] 1 tab PO BID 12/17/16 Clopidogrel Bisulfate [Plavix] 75 mg PO DAILY #30 tab 12/01/21 Levothyroxine Sodium [Euthyrox] 50 mcg PO DAILY 12/01/21 glyBURIDE [Glyburide] 1 tab PO DAILY 12/01/21 - Past Medical/Surgical History Diabetic: Yes -: Hypertension -: TIA -: Hypothroidism -: Diabetes- NIDDM -: Insomnia -: Microalbuminuria -: Tonsillectomy Psychosocial/ Personal History: Patient is . - Family History Father -: Hypertension Mother -: Hypertension - Social History Smoking Status: Never smoker Alcohol use: No CD- Drugs: No Caffeine use: Yes Place of Residence: Home Review of Systems Gastrointestinal: Constipation, As per HPI Genitourinary: Retention Physical Examination - Vital Signs Temperature: 98 F Blood Pressure: 167/67 Pulse: 80 Respirations: 16 Pulse Ox (%): 96 - Physical Exam General: Alert, In no apparent distress HEENT: Atraumatic, EOMI, Sclerae nonicteric Neck: Supple, 2+ carotid pulse no bruit Respiratory: Clear to auscultation bilaterally, Normal air movement Cardiovascular: Regular rate/rhythm, Normal S1 S2 Gastrointestinal: Normal bowel sounds, No tenderness Musculoskeletal: No tenderness Integumentary: No rashes Neurological: Normal speech, Normal affect - Studies Laboratory Data (last 24 hrs) 01/22/23 01/22/23 01/22/23 19:41 19:41 19:41 WBC 11.80 H Hgb 12.6 L Hct 36.9 L Plt Count 122 L PT 12.1 INR 1.10 Sodium 138 Potassium 4.0 BUN 22 H Creatinine 1.21 Glucose 106 Total Bilirubin 0.5 AST 21 ALT 31 Alkaline Phosphatase 91 Assessment and Plan - Problems (Diagnosis) (1) Perianal abscess Current Visit: Yes Status: Acute (2) Hypothyroidism Current Visit: Yes Status: Chronic Qualifiers: Hypothyroidism type: unspecified Qualified Code(s): E03.9 - Hypothyroidism, unspecified (3) Hypertension Current Visit: Yes Status: Chronic Qualifiers: Hypertension type: primary hypertension Qualified Code(s): I10 - Essential (primary) hypertension (4) Type 2 diabetes mellitus Current Visit: Yes Status: Chronic Qualifiers: Diabetes mellitus buttermilk drier operator insulin use: without buttermilk drier operator use Diabetes mellitus complication status: with hyperglycemia Qualified Code(s): E11.65 - Type 2 diabetes mellitus with hyperglycemia - Plan Patient is admitted for further management of perianal abscess. NPO at midnight. Dr. Zapien to take patient to OR for incision and drainage. Continue IV vancomycin and cefepime. Blood cultures obtained in ED. Blood sugar control with sliding scale insulin. Check A1c. Monitor and replete electrolyte per protocol. Reconcile and continue home medications. SCDs for VTE prophylaxis. Full code. Discharge Plan: Home Plan to discharge in: 48 Hours - Advance Directives Does patient have a Living Will: No Does patient have a Durable POA for Healthcare: No - Code Status/Comfort Care Code Status Assessed: Yes Code Status: Full Code Physician Review: Patient Assessed, Agree with Above Assessment and Plan Critical Care: No Time Spent Managing Pts Care (In Minutes): 50
--- NOTE | 2023-01-23 00:51 | EDPHYS ---
Physician Documentation [facility] Name: Jitendra Holliday Age: 52 yrs Sex: Male : 1970 Arrival Date: 01/22/2023 Time: 18:10 Bed 20 Private MD: ED Physician Damion Martin HPI: 01/22 19:20 This 52 yrs old Male presents to ER via Ambulatory with complaints of Groin Pain - cp SWELLING, Fever. 19:20 The patient presents to the emergency department with pain in the rectal area, cp constipation. 19:20 Onset: The symptoms/episode began/occurred gradually, and became worse 1 week(s) ago. cp Associate signs and symptoms: Pertinent positives: pain and swelling of perineum, difficulty urinating, Pertinent negatives: abdominal pain, fever. Patient reports he has been taking prescribed Bactrim and Doxycycline. Historical: - Allergies: 18:25 No Known Allergies; mb9 - Home Meds: 18:25 alprazolam 1 mg oral tablet [Active]; amlodipine 10 mg tablet [Active]; carvedilol 25 mb9 mg oral tablet [Active]; clopidogrel 75 mg oral tablet [Active]; gabapentin 300 mg oral capsule [Active]; hydralazine 50 mg Oral tablet [Active]; levothyroxine 50 mcg capsule [Active]; metformin 1,000 mg Oral tablet [Active]; rosuvastatin 10 mg oral Capsule, Sprinkle [Active]; valsartan-hydrochlorothiazide 160-12.5 mg oral tablet [Active]; - PMHx: 18:25 Diabetes - NIDDM; Hypertension; Hypothyroidism; insomnia; microalbuminuria; TIA; mb9 - PSHx: 18:25 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 - Social history:: Smoking status: Patient denies any tobacco usage or history of. ROS: 19:25 Constitutional: Negative for fever, poor PO intake, cp 19:25 Cardiovascular: Negative for chest pain, palpitations, cp 19:25 Eyes: Negative for injury, pain, redness, and discharge, cp 19:25 ENT: Negative for drainage from ear(s), ear pain, sore throat, difficulty swallowing, difficulty handling secretions, 19:25 Respiratory: Negative for cough, shortness of breath, wheezing, 19:25 Abdomen/GI: Positive for constipation, Negative for abdominal pain, vomiting, diarrhea, 19:25 : Positive for difficulty urinating, 19:25 Skin: Positive for swelling, of the perineal area, pain, 19:25 Back: Negative for pain at rest, pain with movement, cp 19:25 All other systems are negative, Exam: 19:30 Constitutional: The patient appears in no acute distress, alert, awake, cp non-diaphoretic, non-toxic, well developed, well nourished, uncomfortable, 19:30 Head/Face: Normocephalic, atraumatic. cp 19:30 Eyes: Periorbital structures: appear normal, Conjunctiva: normal, no exudate, no injection, Sclera: no appreciated abnormality, Lids and lashes: appear normal, bilaterally, 19:30 ENT: External ear(s): are unremarkable, Nose: is normal, Mouth: Lips: moist, Oral mucosa: pink and intact, moist, Posterior pharynx: Airway: no evidence of obstruction, patent, 19:30 Chest/axilla: Inspection: normal, 19:30 Cardiovascular: Rate: normal, Rhythm: regular, Edema: is not appreciated, JVD: is not appreciated, 19:30 Respiratory: the patient does not display signs of respiratory distress, Respirations: normal, no use of accessory muscles, no retractions, labored breathing, is not present, Breath sounds: are clear throughout, no decreased breath sounds, no stridor, no wheezing, 19:30 Abdomen/GI: Inspection: abdomen appears normal, Palpation: abdomen is soft and non-tender, in all quadrants, 19:30 Back: CVA tenderness, is absent, 19:30 Skin: swelling, tenderness to palpation noted perineal area. 19:35 ECG was reviewed by the Attending Physician. cp Vital Signs: 18:22 BP 149 / 76; Pulse 84; Resp 18; Temp 98; Pulse Ox 100% on R/A; Weight 111.13 kg; Height mb9 6 ft. 1 in. ; 19:50 BP 150 / 71; Pulse 86; Resp 16; Pulse Ox 99% on R/A; km8 20:00 BP 151 / 68; Pulse 88; Resp 16; Pulse Ox 98% on R/A; km8 21:00 BP 161 / 77; Pulse 82; Resp 16 S; Pulse Ox 98% on R/A; km8 22:00 BP 150 / 81; Pulse 87; Resp 16 S; Pulse Ox 97% on R/A; 8 01/23 00:00 BP 167 / 67; Pulse 80; Resp 16 S; Pulse Ox 96% on R/A; km8 01:00 BP 153 / 74; Pulse 84; Resp 16; Pulse Ox 95% on R/A; km8 01/22 18:22 Body Mass Index 32.32 (111.13 kg, 185.42 cm) mb9 Model Coma Score: 01/22 19:15 Eye Response: spontaneous(4). Motor Response: obeys commands(6). Verbal Response: km8 oriented(5). Total: 15. MDM: 18:29 Patient medically screened. cp 20:00 Differential diagnosis: hemorrhoids, abscess, pilonidal cyst, condyloma, sepsis. 01/23 00:40 Management of patient was discussed with the following: Formula Mixer: DR Curry stephenson cp consult and requests admission to services of hospitalist. I considered the following discharge prescriptions or medication management in the emergency department Medications were administered in the Emergency Department. See MAY. 00:40 Data reviewed: vital signs, nurses notes, lab test result(s), radiologic studies, CT cp scan. 00:45 Management of patient was discussed with the following: Hospitalist: Heather Russell NP cp will admit after discussion. 01/22 19:15 Order name: Blood Culture Adult (2) 01/22 19:15 Order name: CBC with Diff; Complete Time: 21:31 01/22 21:32 Interpretation: Normal except: WBC 11.80; RBC 4.23; HGB 12.6; HCT 36.9; PLT 122; MPV cp 7.0; MARY% 75.7; LYM% 15.0; NEUT A 8.9. 01/22 19: Order name: CMP; Complete Time: 21:31 01/22 21:32 Interpretation: BUN 22; GFR 71; GLOB 4.2; A/G 0.8. 01/22 19:15 Order name: Lactate w/ 2H reflex if indic.; Complete Time: 21:31 01/22 19:15 Order name: Protime (+inr); Complete Time: 21:31 01/22 19:15 Order name: Urinalysis w/ reflexes; Complete Time: 22:30 01/22 22:30 Interpretation: Reviewed. 01/22 19:57 Order name: Glucose, Ancillary Testing; Complete Time: 21:31 EDMS 01/22 19:50 Order name: CT Abd/Pelvis - PO and IV Contrast 01/22 19:15 Order name: EKG; Complete Time: 19:16 01/22 19:15 Order name: Accucheck; Complete Time: 19:46 01/22 19:15 Order name: Cardiac monitoring; Complete Time: 19:47 01/22 19:15 Order name: EKG - Nurse/Tech; Complete Time: 19:47 01/22 19:15 Order name: IV Saline Lock - Large Bore; Complete Time: 19:47 01/22 19:15 Order name: Labs collected and sent; Complete Time: 19:47 01/22 19:15 Order name: O2 Per Protocol; Complete Time: 19:47 01/22 19:15 Order name: O2 Sat Monitoring; Complete Time: 19:47 01/22 19:15 Order name: Vital Signs; Complete Time: 19:47 01/22 19:15 Order name: Bladder Scanner: pre and post void; Complete Time: 21:03 cp EC/15 19:35 Rate is 85 beats/min. Rhythm is regular. MN interval is prolonged at 208 msec. QRS cp interval is normal. QT interval is normal. Interpreted by me. Reviewed by me. Administered Medications: 19:59 Drug: morphine IVP or IV 4 mg IVP once over 4 mins Route: IVP; Infused Over: 4 mins; km8 Site: right antecubital; 20:30 Follow up: Response: No adverse reaction [facility] 19:59 Drug: Ondansetron IVP 4 mg IVP once; over 2 minutes Route: IVP; Site: right antecubital;km8 20:30 Follow up: Response: Adverse reaction, Physician notified km8 21:03 Drug: HYDROmorphone IVP 1 mg IVP once Route: IVP; Site: right antecubital; km8 21:33 Follow up: Response: Adverse reaction, Physician notified; Pain is decreased km8 21:03 Drug: NS 0.9% IV 1000 ml IV at 1 bolus Per protocol; 1000 mL bolus Route: IV; Rate: 1 km8 bolus; Site: right antecubital; 01/23 02:06 Follow up: IV Status: Completed infusion; IV Intake: 1000ml 01/22 23:34 Drug: HYDROmorphone IVP 1 mg IVP once Route: IVP; Site: right antecubital; 01/23 00:05 Follow up: Response: No adverse reaction; Pain is decreased 01:03 Drug: Cefepime IVPB 1 grams IVPB at 200 ml/hr once over 30 mins; (mix in NS 100 mL) Route: IVPB; Rate: 200 ml/hr; Infused Over: 30 mins; Site: right antecubital; 02:00 Follow up: IV Status: Completed infusion; IV Intake: 100ml 01:35 Drug: HYDROmorphone IVP 1 mg IVP once Route: IVP; Site: right antecubital; 02:06 Follow up: Response: No adverse reaction 02:07 Drug: vancoMYCIN IVPB 1 grams IVPB once over 2 hrs Route: IVPB; Infused Over: 2 hrs; Site: right antecubital; 02:07 Follow up: IV Status: Infusion continued upon admission Disposition: 10:13 Co-signature as Attending Physician, Damion Martin MD I reviewed the patient's care rt provided by the Advanced Practice Provider and agree with the diagnosis and treatment plan. Disposition Summary: 01/23/23 00:50 Hospitalization Ordered Notes: Hospitalization Status: Inpatient Admission cp Provider: Kiel Dow cp Location: Telemetry/[facility] (Inpatient) cp Condition: Stable cp Problem: new cp Symptoms: have improved cp Bed/Room Type: Standard cp Room Assignment: 228(01/23/23 01:06) rv1 Diagnosis - Cutaneous abscess of perineum cp Forms: - Medication Reconciliation Form cp - SBAR form cp - Leadership Thank You Letter cp Signatures: Dispatcher [employer] Jamaal Mcadams PA PA cp Michelle Hickman RN RN mb9 Damion Martin MD MD rt Felicia Cook rv1 Doris Randhawa RN RN km8 Corrections: (The following items were deleted from the chart) 01:06 00:50 cp rv1 23:37 01/22 22:45 Data reviewed: vital signs, nurses notes, lab test result(s), radiologic cp studies, CT scan, cp 01/23 23:37 01/22 22:45 I considered the following discharge prescriptions or medication management cp in the emergency department Medications were administered in the Emergency Department. See MANAN cp 01/23 23:37 01/22 22:45 Management of patient was discussed with the following: Formula Mixer: DR majo Zapien will consult and requests admission to services of hospitalist. cp
--- NOTE | 2023-01-23 00:51 | ER ---
Nurse's Notes [facility] Name: Jitendra Holliday Age: 52 yrs Sex: Male : 1970 Arrival Date: 01/22/2023 Time: 18:10 Bed 20 Private MD: Diagnosis: Cutaneous abscess of perineum Presentation: 01/22 18:22 Chief complaint: Patient states: "I have this mass from my rectum that goes in my mb9 scrotum. It's swelling and getting worse over the past week. I haven't had a BM for 5 days and have a hard time urinating. This is the 3rd this happened in [address] Barber gave me antibiotics, Doxycycline and Bactrim, and it's not helping.". Coronavirus screen: At this time, the client does not indicate any symptoms associated with coronavirus-19. Ebola Screen: No symptoms or risks identified at this time. Initial Sepsis Screen: Does the patient meet any 2 criteria? No. Patient's initial sepsis screen is negative. Does the patient have a suspected source of infection? No. Patient's initial sepsis screen is negative. Risk Assessment: Do you want to hurt yourself or someone else? Patient reports no desire to harm self or others. Onset of symptoms was January 22, 2023. 18:22 Method Of Arrival: Ambulatory mb9 18:22 Acuity: JOHANNA 3 mb9 Historical: - Allergies: 18:25 No Known Allergies; mb9 - Home Meds: 18:25 alprazolam 1 mg oral tablet [Active]; amlodipine 10 mg tablet [Active]; carvedilol 25 mb9 mg oral tablet [Active]; clopidogrel 75 mg oral tablet [Active]; gabapentin 300 mg oral capsule [Active]; hydralazine 50 mg Oral tablet [Active]; levothyroxine 50 mcg capsule [Active]; metformin 1,000 mg Oral tablet [Active]; rosuvastatin 10 mg oral Capsule, Sprinkle [Active]; valsartan-hydrochlorothiazide 160-12.5 mg oral tablet [Active]; - PMHx: 18:25 Diabetes - NIDDM; Hypertension; Hypothyroidism; insomnia; microalbuminuria; TIA; mb9 - PSHx: 18:25 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 - Social history:: Smoking status: Patient denies any tobacco usage or history of. Screenin:15 [facility] ED Fall Risk Assessment (Adult) History of falling in the last 3 months, km8 including since admission No falls in past 3 months (0 pts) Confusion or Disorientation No (0 pts) Intoxicated or Sedated No (0 pts) Impaired Gait No (0 pts) Mobility Assist Device Used No (0 pt) Altered Elimination No (0 pt) Score/Fall Risk Level 0 - 2 = Low Risk Oriented to surroundings, Maintained a safe environment, Educated pt \\T\\ family on fall prevention, incl call for assistance when getting out of bed, Assessed \\T\\ reinforced patient's understanding of fall precautions. Abuse screen: Denies threats or abuse. Denies injuries from another. Nutritional screening: No deficits noted. Tuberculosis screening: No symptoms or risk factors identified. Assessment: 19:15 General: Appears in no apparent distress. uncomfortable, Behavior is calm, cooperative, km8 appropriate for age. 19:15 Pain: Complains of pain in buttocks and groin. Neuro: Level of Consciousness is awake, km8 alert, obeys commands, Oriented to person, place, time, situation. Cardiovascular: Denies chest pain, shortness of breath, Capillary refill < 3 seconds Patient's skin is warm and dry. Respiratory: Airway is patent Respiratory effort is even, unlabored, Respiratory pattern is regular, symmetrical. GI: Reports constipation. : Reports difficulty voiding. EENT: No signs and/or symptoms were reported regarding the EENT system. Derm: No signs and/or symptoms reported regarding the dermatologic system. Skin is intact, is healthy with good turgor, Skin is clammy, Skin is pink, warm \\T\\ dry. normal, Skin temperature is warm. Musculoskeletal: Range of motion: intact in all extremities. 22:05 Reassessment: Patient appears in no apparent distress at this time. No changes from km8 previously documented assessment. Patient and/or family updated on plan of care and expected duration. Pain level reassessed. Patient is alert, oriented x 3, equal unlabored respirations, skin warm/dry/pink. pain decreased. 23:00 Reassessment: pt at CT at this time. km8 01/23 00:06 Reassessment: Patient appears in no apparent distress at this time. Patient and/or km8 family updated on plan of care and expected duration. Pain level reassessed. Patient is alert, oriented x 3, equal unlabored respirations, skin warm/dry/pink. 01:37 Reassessment: Patient appears in no apparent distress at this time. Patient and/or km8 family updated on plan of care and expected duration. Pain level reassessed. Patient is alert, oriented x 3, equal unlabored respirations, skin warm/dry/pink. Vital Signs: 01/22 18:22 BP 149 / 76; Pulse 84; Resp 18; Temp 98; Pulse Ox 100% on R/A; Weight 111.13 kg; Height mb9 6 ft. 1 in. ; 19:50 BP 150 / 71; Pulse 86; Resp 16; Pulse Ox 99% on R/A; km8 20:00 BP 151 / 68; Pulse 88; Resp 16; Pulse Ox 98% on R/A; km8 21:00 BP 161 / 77; Pulse 82; Resp 16 S; Pulse Ox 98% on R/A; km8 22:00 BP 150 / 81; Pulse 87; Resp 16 S; Pulse Ox 97% on R/A; km8 01/23 00:00 BP 167 / 67; Pulse 80; Resp 16 S; Pulse Ox 96% on R/A; km8 01:00 BP 153 / 74; Pulse 84; Resp 16; Pulse Ox 95% on R/A; km8 01/22 18:22 Body Mass Index 32.32 (111.13 kg, 185.42 cm) mb9 [place] Coma Score: 01/22 19:15 Eye Response: spontaneous(4). Motor Response: obeys commands(6). Verbal Response: km8 oriented(5). Total: 15. ED Course: 18:14 Patient arrived in ED. mg5 18:17 Jamaal Bolivar PA is PHCP. cp 18:17 Damion Martin MD is Attending Physician. cp 18:25 Triage completed. mb9 18:28 Arm band placed on. mb9 19:05 Doris Randhawa, APRIL is Primary Nurse. km8 19:15 Patient has correct armband on for positive identification. Placed in gown. Bed in low km8 position. Call light in reach. Side rails up X 1. Client placed on continuous cardiac and pulse oximetry monitoring. NIBP monitoring applied. playground monitor on. Door closed. Noise minimized. Warm blanket given. 19:15 Patient maintains SpO2 saturation greater than 95% on room air. km8 19:47 Blood Culture Adult (2) Sent. km8 19:47 CBC with Diff Sent. km8 19:47 CMP Sent. km8 19:47 Lactate w/ 2H reflex if indic. Sent. km8 19:47 Protime (+inr) Sent. km8 19:47 Inserted saline lock: 20 gauge in right antecubital area, using aseptic technique. 8 Blood collected. 21:03 Bladder scan completed. 74ml pre-void. km8 22:02 Bladder scan completed. 45ml post void. km8 23:24 CT Abd/Pelvis - PO and IV Contrast In Process Unspecified. EDMS 01/23 00:50 Kiel Dow is Hospitalizing Provider. 01:30 Provided Education on: admission process. [facility] 02:07 No provider procedures requiring assistance completed. Patient admitted, IV remains in [facility] place. Administered Medications: 01/22 19:59 Drug: morphine IVP or IV 4 mg IVP once over 4 mins Route: IVP; Infused Over: 4 mins; [facility] Site: right antecubital; 20:30 Follow up: Response: No adverse reaction [facility] 19:59 Drug: Ondansetron IVP 4 mg IVP once; over 2 minutes Route: IVP; Site: right antecubital;[facility] 20:30 Follow up: Response: Adverse reaction, Physician notified [facility] 21:03 Drug: HYDROmorphone IVP 1 mg IVP once Route: IVP; Site: right antecubital; [facility] 21:33 Follow up: Response: Adverse reaction, Physician notified; Pain is decreased [facility] 21:03 Drug: NS 0.9% IV 1000 ml IV at 1 bolus Per protocol; 1000 mL bolus Route: IV; Rate: 1 km8 bolus; Site: right antecubital; 01/23 02:06 Follow up: IV Status: Completed infusion; IV Intake: 1000ml [facility] 01/22 23:34 Drug: HYDROmorphone IVP 1 mg IVP once Route: IVP; Site: right antecubital; [facility] 01/23 00:05 Follow up: Response: No adverse reaction; Pain is decreased [facility] 01:03 Drug: Cefepime IVPB 1 grams IVPB at 200 ml/hr once over 30 mins; (mix in NS 100 mL) km8 Route: IVPB; Rate: 200 ml/hr; Infused Over: 30 mins; Site: right antecubital; 02:00 Follow up: IV Status: Completed infusion; IV Intake: 100ml km 01:35 Drug: HYDROmorphone IVP 1 mg IVP once Route: IVP; Site: right antecubital; km8 02:06 Follow up: Response: No adverse reaction km 02:07 Drug: vancoMYCIN IVPB 1 grams IVPB once over 2 hrs Route: IVPB; Infused Over: 2 hrs; km8 Site: right antecubital; 02:07 Follow up: IV Status: Infusion continued upon admission km Medication: 02:07 VIS not applicable for this client. km8 Intake: 02:00 IV: 100ml; Total: 100ml. km 02:06 IV: 1000ml; Total: 1100ml. km8 Output: 01/22 22:01 Urine: 350ml (Voided); Total: 350ml. km Outcome: 01/23 00:50 Decision to Hospitalize by Provider. cp 02:08 Admitted to Med/surg accompanied by tech, via wheelchair, room 228, with chart, Report km8 called to APRIL Franklin 02:08 Condition: stable 02:08 Discharge instructions given to patient, Instructed on the need for admit, Demonstrated understanding of instructions, 02:27 Patient left the ED. km8 Signatures: Dispatcher [employer] EDND Jamaal Bolivar PA PA cp Breneman, Mary Beth, RN RN mb9 Andressa Hooker [facility] Doris Randhawa RN RN km8
[2023-01-23] MEDS ORDERED: NA CHLORIDE 0.9% 250 ML ONE (00:58)
[2023-01-23] MEDS ORDERED: VANCOMYCIN 1 GM/VIAL ONE (00:58)
[2023-01-23] MEDS ORDERED: CEFEPIME 1 GM/VIAL ONE (00:59)
[2023-01-23] MEDS ORDERED: HYDROMORPHONE HCL 1 MG/ML INJ ONE (01:42)
[2023-01-23] MEDS ORDERED: ONDANSETRON 4 MG/2 ML VIAL IV PRN (02:48)
[2023-01-23] MEDS ORDERED: VANCOMYCIN 1 GM in NA CHLORIDE 0.9% 250 ML IVPB SCH (02:48)
[2023-01-23 03:04] VITALS: BMI 33.0
[2023-01-23] MEDS ORDERED: VANCOMYCIN 1 GM in NA CHLORIDE 0.9% 250 ML IVPB ONE (03:30)
[2023-01-23] MEDS: MORPHINE 4 MG/ML SYR IV PRN ×5 (03:35→21:54)
[2023-01-23] MEDS: NA CHLORIDE 0.9% 1,000 ML IV SCH ×2 (03:40→17:48)
[2023-01-23] MEDS: ACETAMINOPHEN 500 MG TAB PO PRN (05:57)
[2023-01-23] MEDS: INSULIN REGULAR (HUMAN) 100 UNIT/ML SQ SCH ×4 (06:00→19:57)
[2023-01-23] MEDS ORDERED: HYDROMORPHONE HCL 0.5 MG/0.5 ML INJ IV ONE (06:03)
[2023-01-23] MEDS: CEFEPIME 1 GM in NA CHLORIDE 0.9% 100 ML IV SCH ×2 (09:49→22:31)
--- NOTE | 2023-01-23 10:42 | EKG ---
Test Date: 2023-01-22 Test Time: 19:29:00 Business Operations Specialist: DAVID MEASUREMENT RESULTS: Intervals: Rate: 85 SD: 208 QRSD: 94 QT: 356 QTc: 423 Thomas: P: SD: 208 QRS: 124 T: 189 INTERPRETIVE STATEMENTS: Normal sinus rhythm Left posterior fascicular block ST & T wave abnormality, consider inferior ischemia Abnormal ECG Compared to ECG 04/17/2022 08:47:38 Left posterior fascicular block now present ST (T wave) deviation now present Possible ischemia now present Atrial premature complex(es) no longer present First degree AV block no longer present Electronically Signed On 01-23-23 10:41:01 HOSPITAL SECRETARY by Alen Joseph
[2023-01-23] MEDS ORDERED: ONDANSETRON 4 MG/2 ML VIAL ONE (11:40)
[2023-01-23] MEDS ORDERED: FENTANYL CITR 100 MCG/2 ML ONE (11:40)
[2023-01-23] MEDS ORDERED: MIDAZOLAM HCL 2 MG/2 ML INJ ONE (11:40)
[2023-01-23] MEDS ORDERED: VANCOMYCIN 2 GM in NA CHLORIDE 0.9% 500 ML IVPB SCH ×3 (12:00→20:00)
--- NOTE | 2023-01-23 13:03 | P.BOP ---
Preoperative diagnosis: perianal abscess Postoperative diagnosis: same Primary procedure: EUA, anoscopy, rigid proctoscopy, I&D complex parianal abscess [id number] Estimated blood loss: <10cc Specimen: pus Findings: pus Anesthesia: General Complications: None Drain(s): Other (1/2" iodoform) Transferred to: Recovery Room Condition: Good
[2023-01-23] MEDS: HYDROMORPHONE HCL 1 MG/ML INJ ONE ×2 (13:29→13:39)
[2023-01-23 13:41] VITALS: O2SAT 94
--- NOTE | 2023-01-23 14:38 | OP ---
Date of Procedure: 01/23/2023 Surgeon: Theodore Zapien MD Preoperative Diagnoses: Perianal abscess, perianal cellulitis, perineal abscess too, and insulin-dep endent diabetes. Postoperative Diagnoses: Perianal abscess, perianal cellulitis, perineal abscess too, and insulin-de pendent diabetes. Procedure: Examination under anesthesia, anoscopy, rigid proctoscopy, incision and drainage of compl ex perianal abscess 7 x 5 x 2 cm. Specimen: Pus. Finding: Abscess. Anesthesia: General plus local. Packing: A quarter of an inch iodoform. Indication: This is a case of a 52-year-old patient who came to us with a large abscess between the anus and the scrotum diagnosed with perianal, perineal abscess. The benefits, alternatives, and risk s of EUA, anoscopy, proctoscopy, I and D of perianal abscess fully explained, which include, but not limited to, infection, bleeding, damage to adjacent structures, anesthesia complications, recurrence, PR, and even . He also understands this may not relieve any symptoms. He might need more than one surgical intervention. He understood, signed a consent. Description Of Procedure: Patient was brought to the operating room, placed in supine position. Ane sthesia was given without complication. The patient was placed in lithotomy position with proper pro tection. A time-out was called. Rectal examination was done followed by rigid proctoscopy all the w ay to about 12 cm. We cannot do it deeper than that as lot of stools were present. The camera was r emoved under direct visualization. Then, after that, I placed an anoscope with a window on the side. I could not see any connection of the fistula to the rectum. So, at that moment, we proceeded then to identify the perianal abscess, made an incision, and foul-smelling pus came from that area. It w as a combination also of some blood clots. Area was irrigated until clean. Hemostasis was obtained and then the cultured area was packed with an iodoform inch. Patient tolerated the proced ure well. Sponge counts and instrument counts were correct. Patient sent to Recovery in stable cond ition. HM/MODL Voice ID: [id number] Report ID: [id number]
--- NOTE | 2023-01-23 15:05 | P.PN ---
Date of Service: 01/23/23 Patient seen and examined. Perianal mass. No fever. Plan: Status post anoscopy and I&D by Dr. Zapien. Pain medications as needed. Follow-up deep tissue wound culture. Aggressive blood sugar control-insulin sliding scale, resume home antidiabetics.
--- NOTE | 2023-01-23 15:17 | CON ---
Date of Consultation: 01/23/2023 Diagnosis: Perianal and perineal abscess. History Of Present Illness: This is the case of a 52-year-old patient with insulin-dependent diabete s, who comes to us with perianal and perineal swelling, tenderness, increase in temperature to the po int that he has to come to the ER and diagnosed with a perianal and perineal abscess, little bigger t yates 6 cm. The etiology of that is unknown. He does not remember any trauma. He always had some dif ficulty defecating, but he does not recall any major bout of constipation recently. He does not humberto mber his last colonoscopy, although he was advised important to do so. This is not a substitute for his colonoscopies. Allergies: NONE. Medications: Include Crestor, Zoloft, Plavix, glyburide, and . Past Medical History: Medical problems include TIAs, hypertension, hypothyroidism, diabetes, and ins omnia. Past Surgical History: Surgeries include tonsillectomy. Family History: Hypertension. Social History: He does not smoke. He does not drink alcohol. Review of Systems: As above, constipation and perianal and perineal tenderness. Ten points otherwise unremarkable. Physical Examination: Vital Signs: Stable. General: Awake and alert. Chest: Clear. HEENT: Pupils equal, reactive, anicteric. Neck: Supple. Abdomen: Soft and depressible. Perineal and perianal area with bulging, tenderness, fluctuance, demar thema consistent with perineal/perianal abscess. CAT scan of the abdomen and pelvis once again reveal large collections of the perineal region suggest ing of an abscess. Laboratory Data: Blood work shows WBC count of 11.8, hemoglobin of 12, INR is 1.1, and BUN is 22. Assessment: He is a 52-year-old patient with perineal/perianal abscess. The benefits, alternatives, and risks of EUA, anoscopy, proctoscopy, incision and drainage of perianal abscess fully explained, which include, but not limited to infection, bleeding, damage to adjacent structures, anesthesia comp lication, recurrence, [place], and even . He also understands the importance of controlling his diab etes, compliance with his p.o. medication, and he most likely will require wound care. He understood . The patient was booked in OR. HM/MODL Voice ID: [id number] Report ID: [id number]
[2023-01-23] MEDS ORDERED: GLUCAGON 1 MG/VIAL IM PRN (19:37)
[2023-01-23] MEDS ORDERED: D50W 25 GM/50 ML SYRINGE IV PRN (19:37)
--- NOTE | 2023-01-23 20:37 | RAD REPORT ---
EXAM DESCRIPTION: CT - Abdomen Pelvis W Contrast - 01/22/2023 11:53 pm CLINICAL HISTORY: The patient is 52 years old and is Male; GROIN PAIN, CONSTIPATION IV ORAL Bed Name: 20 TECHNIQUE: Axial computed tomography images of the abdomen and pelvis with intravenous contrast. S agittal and coronal reformatted images were created and reviewed. This CT exam was performed using one or more of the following dose reduction techniques: automated exposure control, adjustment of t he mA and/or kV according to patient size, and/or use of iterative reconstruction technique. COMPARISON: 09/08/2020 CT chest abdomen pelvis with contrast. FINDINGS: LUNG BASES: Unremarkable. No mass. No consolidation. ABDOMEN: LIVER: Nodular hepatic margin, suggesting hepatic cirrhosis. GALLBLADDER AND BILE DUCTS: Unremarkable. No calcified stones. No ductal dilation. PANCREAS: Unremarkable. No mass. No ductal dilation. SPLEEN: Unremarkable. No splenomegaly. ADRENALS: Unremarkable. No mass. KIDNEYS AND URETERS: Unremarkable. No solid mass. No hydronephrosis. STOMACH AND BOWEL: Moderate colonic stool burden without evidence of small or large bowel obstructi on. Oral contrast demonstrated within the mid to distal small bowel and proximal ascending colon with no abnormal mucosal thickening or intraluminal mass appreciated. PELVIS: APPENDIX: No findings to suggest acute appendicitis. BLADDER: Unremarkable. No mass. REPRODUCTIVE: Unremarkable as visualized. ABDOMEN and PELVIS: INTRAPERITONEAL SPACE: Unremarkable. No free air. No significant fluid collection. BONES/JOINTS: Redemonstrated intraosseous hemangioma within the L4 vertebra. No acute fracture. N o dislocation. SOFT TISSUES: 6.3 x 3 x 5.3 cm fluid collection within the perineal soft tissues (axial images 103- 109), with a somewhat thickened, inflammatory margin, suggesting abscess. Tiny fat-containing umbilical hernia. VASCULATURE: Densely calcified atherosclerosis of the abdominal aorta without aneurysmal dilatation . LYMPH NODES: Reactive appearing bilateral inguinal lymph nodes with no suppurative lymphadenopathy. IMPRESSION: 1. 6.3 x 3 x 5.3 cm fluid collection within the perineal soft tissues (axial images 10 3-109), with a somewhat thickened, inflammatory margin, suggesting abscess. No appreciable tract or fistula identified. 2. Nodular hepatic margin, suggesting hepatic cirrhosis. [facility] elastography. Electronically signed by: Oleg Landis MD 01/22/2023 11:42 PM REGISTERED TRAVEL NURSE Due to temporary technical issues with the PACS/Fluency reporting system, reports are being signed by the in house radiologists without review as a courtesy to insure prompt reporting. The interpreting radiologist is fully responsible for the content of the report.
[2023-01-24] MEDS: ACETAMINOPHEN 500 MG TAB PO PRN (00:48)
[2023-01-24] MEDS: MORPHINE 4 MG/ML SYR IV PRN ×4 (02:13→13:25)
[2023-01-24 03:09] LABS: Absolute Lymphocytes (CBC) 1.8 K/uL (0.7-4.9); Hematocrit 29.6 % (39.6-49.0); Lymphocytes % 23.8 % (15.3-44.8); MCV 86.8 fL (80-100); MPV 7.1 fL (7.6-11.3); Platelets 110 thou/uL (152-406); RBC Red Blood Cell Count 3.41 M/uL (4.33-5.43)
[2023-01-24] MEDS ORDERED: CALCIUM CARBONATE CHEW 500MG TAB PO PRN (03:48)
[2023-01-24 03:51] LABS: Phosphorus 2.4 mg/dL (2.5-4.9); Potassium 3.9 mEq/L (3.5-5.1)
[2023-01-24] MEDS ORDERED: POTASS/SODIUM PHOSPHATE 1 PKT POWD.PACK PO SCH (04:00)
[2023-01-24] MEDS: NA CHLORIDE 0.9% 1,000 ML IV SCH ×2 (04:40→08:48)
[2023-01-24] MEDS ORDERED: POTASSIUM CL SA 10 MEQ TAB PO ONE (06:00)
[2023-01-24] MEDS: INSULIN REGULAR (HUMAN) 100 UNIT/ML SQ SCH ×3 (07:30→16:30)
[2023-01-24] MEDS: POTASS/SODIUM PHOSPHATE 1 PKT POWD.PACK PO SCH ×3 (10:00→11:00)
[2023-01-24] MEDS: CEFEPIME 1 GM in NA CHLORIDE 0.9% 100 ML IV SCH (10:13)
[2023-01-24] MEDS ORDERED: D10W 125 ML IV PRN (14:31)
--- NOTE | 2023-01-24 16:30 | P.DS ---
Admission Date: 01/23/23 Discharge Date: 01/24/23 Disposition: ROUTINE DISCHARGE Discharge Condition: FAIR Reason for Admission: Perineal Abscess - Problems (1) Perianal abscess Current Visit: Yes Status: Acute (2) Hypertension Current Visit: Yes Status: Chronic Qualifiers: Hypertension type: primary hypertension Qualified Code(s): I10 - Essential (primary) hypertension (3) Hypothyroidism Current Visit: Yes Status: Chronic Qualifiers: Hypothyroidism type: unspecified Qualified Code(s): E03.9 - Hypothyroidism, unspecified (4) Type 2 diabetes mellitus Current Visit: Yes Status: Chronic Qualifiers: Diabetes mellitus longterm insulin use: without longterm use Diabetes mellitus complication status: with hyperglycemia Qualified Code(s): E11.65 - Type 2 diabetes mellitus with hyperglycemia Brief History of Present Illness: Mr. Holliday is a 52-year-old male with past medical history of noninsulin- dependent type 2 diabetes, hypertension, hypothyroidism, and TIA who presented to the emergency department with complaints of rectal/scrotal pain, difficulty defecating, and difficulty urinating. 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 He is not tachycardic or febrile in emergency department today. CT showed "6.3 x 3 x 5.3 cm fluid collection within the perineal soft tissues, with a somewhat thickened, inflammatory margin, suggesting abscess. No appreciable tract or fistula identified." No significant lab abnormalities. Dr. Zapien was contacted and will take patient to or tomorrow. He was started on vancomycin and cefepime in the emergency department. Will admit to hospitalist service for further management of perineal abscess. Hospital Course: Patient admitted to the medical floor and started on IV antibiotics. He was seen and evaluated by Dr. Zapien who performed anoscopy and I&D of perineal abscess. Wound culture growing gram-positive cocci. Wound was packed. Blood sugar readings monitored by [employer] in acceptable range. Stable vitals. Patient deemed stable for discharge. Dr. Zapien instructions were to remove wound packing tomorrow and to do dry dressing with gauze. Patient is discharged with Augmentin and doxycycline for wound infection. He is informed to follow-up with Dr. Zapien at the wound healing center next week Tuesday 01/30. Vital Signs/Physical Exam: Temp Pulse Resp BP Pulse Ox 97.7 F 69 16 141/70 H 94 01/24/23 12:00 01/24/23 12:00 01/24/23 12:00 01/24/23 12:00 01/24/23 12:00 General: Alert, In no apparent distress, Oriented x3 HEENT: Mucous membr. moist/pink Neck: Supple, JVD not distended Respiratory: Clear to auscultation bilaterally, Normal air movement Cardiovascular: No edema, Regular rate/rhythm, Normal S1 S2 Gastrointestinal: Normal bowel sounds, Soft and benign, Non-distended Musculoskeletal: No swelling, No tenderness Integumentary: No cyanosis Neurological: Normal strength at 5/5 x4 extr External genitalia: Other (Perineal I&D wound with clean dressing.) Laboratory Data at Discharge: WBC 7.60 thou/uL (4.3-10.9) 01/24/23 01:55 Hgb 10.6 g/dL (13.6-17.9) L 01/24/23 01:55 Hct 29.6 % (39.6-49.0) L 01/24/23 01:55 Plt Count 110 thou/uL (152-406) L 01/24/23 01:55 PT 12.1 SECONDS (9.5-12.5) 01/22/23 19:41 INR 1.10 01/22/23 19:41 Sodium 136 mEq/L (136-145) 01/24/23 01:55 Potassium 3.9 mEq/L (3.5-5.1) 01/24/23 01:55 BUN 14 mg/dL (7-18) 01/24/23 01:55 Creatinine 0.78 mg/dL (0.70-1.30) 01/24/23 01:55 Glucose 118 mg/dL (74-106) H 01/24/23 01:55 Phosphorus 2.4 mg/dL (2.5-4.9) L 01/24/23 01:55 Magnesium 2.0 01/24/23 01:55 Total Bilirubin 0.5 mg/dL (0.2-1.0) 01/22/23 19:41 AST 21 U/L (15-37) 01/22/23 19:41 ALT 31 U/L (16-61) 01/22/23 19:41 Alkaline Phosphatase 91 U/L (45-117) 01/22/23 19:41 Home Medications: Amlodipine Besylate 10 mg PO DAILY 07/14/11 Metformin HCl 1,000 mg PO BID 07/14/11 Levothyroxine Sodium [Levothroid] 50 mcg PO DAILY #30 tablet 07/17/11 Alprazolam 2 mg PO BEDTIME 12/17/16 Pioglitazone [Actos*] 30 mg PO DAILY 12/17/16 Rosuvastatin [Crestor*] 1 tab PO BEDTIME 12/17/16 Sertraline [Zoloft*] 25 mg PO BEDTIME 12/17/16 carvediloL [Carvedilol] 1 tab PO BID 12/17/16 Clopidogrel Bisulfate [Plavix*] 75 mg PO DAILY #30 tab 12/01/21 glyBURIDE [Glyburide] 1 tab PO DAILY 12/01/21 Amox/Clavulanate [Augmentin 875-125 Tab] 1 each PO BID #28 tab 01/24/23 Doxycycline Hyclate [Vibramycin] 100 mg PO BID #28 cap 01/24/23 Hydrocodone 7.5/APAP 325 [[place] 7.5/325 mg] 1 tab PO Q6H PRN #20 tab 01/24/23 New Medications: Amox/Clavulanate [Augmentin 875-125 Tab] 1 each PO BID #28 tab Hydrocodone 7.5/APAP 325 [[place] 7.5/325 mg] 1 tab PO Q6H PRN #20 tab PRN Reason: Pain Doxycycline Hyclate [Vibramycin] 100 mg PO BID #28 cap Physician Discharge Instructions: Wound care: Remove wound packing tomorrow. Dry dressing with gauze/ABD pad. Diet: ADA Activity: Ad toño Followup: Theodore Zapien MD [ACTIVE - CAN ADMIT] - (At the wound healing center on 01/28/2023) MARIA ESTHER MAYO [Primary Care Provider] - Time spent managing pt's care (in minutes): 32
[2023-01-24 17:21] VITALS: BP 173/81; TEMP 97.5
[2023-01-24] MEDS ORDERED: HYDROCODONE/APAP 7.5/325 MG TAB PO ONE (17:40)
[2023-01-24] MEDS ORDERED: AMOX/K CLAV 875 MG TAB PO SCH (21:00)
[2023-01-24] MEDS ORDERED: DOXYCYCLINE 100 MG CAP PO SCH (21:00)
== END 2023-01-24 17:49 | disposition home or self-care (01) | DRG 580 ==
LOC: ER 18:10 → 2ND 01-23 00:44
PROVIDERS: ADMIT Internal Medicine; ATTEND Internal Medicine
PROC: 0D9Q8ZZ Drainage of Anus, Via Natural or Artificial Opening Endoscopic (ICD-10-PCS; principal; 2023-01-23 11:30)
DX: L02.215 Cutaneous abscess of perineum (principal); K61.0 Anal abscess; I10 Essential (primary) hypertension; E03.9 Hypothyroidism, unspecified; E78.5 Hyperlipidemia, unspecified; E11.65 Type 2 diabetes mellitus with hyperglycemia; K59.00 Constipation, unspecified; B96.89 Other specified bacterial agents as the cause of diseases classified elsewhere; Z79.4 Long term (current) use of insulin; Z79.02 Long term (current) use of antithrombotics/antiplatelets; Z79.84 Long term (current) use of oral hypoglycemic drugs; Z86.73 Personal history of transient ischemic attack (TIA), and cerebral infarction without residual deficits; Z79.899 Other long term (current) drug therapy; Z79.890 Hormone replacement therapy
CPT/HCPCS: 36415; 74177; 80048; 80053; 80202; 81001; 82947; 83036; 83605; 83735; 84100; 85025; 85610; 87040; 87070; 87075; 87205; 93005; 96361; 96365; 96375; 99285; J0692; J1170; J2250; J2405; J3010; J7030; J7040; J7050; Q9967